=== PATIENT | female | born 1940 | race Caucasian/White ===

== ENCOUNTER 2023-08-17 17:45 | Inpatient (IN) | payer MEDICARE, BC, SELFPAY ==
[2023-08-17 14:27] VITALS: BP 146/70
[2023-08-17 14:33] VITALS: BMI 33.4
[2023-08-17] MEDS: DILAUDID 0.5 MG IV ×4 (15:08→23:39)
--- NOTE | 2023-08-17 16:00 | ED.MUSCINJ ---
HPI-Injury
General
Chief Complaint: Fall
Source: patient
Exam Limitations: none
Time Seen by Provider: 08/17/23 14:27
Nursing documentation reviewed up to this point in time: agreed with
Travel History
Have you had any contact with someone who has COVID-19?: No
Do you have any symptoms of coronavirus? Fever > 100 degrees, chills, cough, shortness of breath, sore throat, loss of taste or smell, muscle aches, or headache?: No
History of Present Illness-Injury
Is this injury a work related problem?: No
Is pt an associate of [facility]?: No
Initial Injury comments:
Patient states she lost her footing and fell. No LOC. COmplains of pain to left thigh. 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
Past History
Past History
ED Past Medical History: GERD, HTN, Hypercholesterolemia, Hypothyroidism, Psychiatric and Other (Dementia)
ED Past Surgical History: Orthopedic (left THR, TKR) and Other
Social History
Tobacco: Non-smoker
Alcohol: None
Drug: None
Personal:
Living: penitentiary
Review of Systems
Review of Systems
Allergies reviewed?: Yes
All Other Systems: ROS reviewed and negative except as documented in HPI and ROS
Constitutional: Reports no symptoms
EENT: Reports no symptoms
Respiratory: Reports no symptoms
Cardiac: Reports no symptoms
ABD/GI: Reports no symptoms
Musculoskeletal: Reports joint pain (Pain to left thigh)
Skin: Reports no symptoms
Neurological: Reports no symptoms
Psychiatric: Reports no symptoms
Musculoskeletal Injury Exam
Musculoskeletal Injury Exam
Left Thigh:
Pain with Movement?: Moderate
Tender to palpation?: Moderate
Soft tissue swelling?: None
External deformity and angulation?: None
Joint effusion?: None
Contusion?: Moderate
Hematoma-local bleeding into tissue?: None
Strain- Sprain- Tear (Connective tissue injury)?: Moderate
Crepitus with movement?: No
Joint instability?: No
Malalignment/deformity?: No
Range of motion: Limited
Distal skin color and temperature: normal-warm & good color
Capillary Refill: normal
Normal distal neurovascular exam?: No
Peripheral Pulses: posterior tibial (left): 3+ and dorsalis pedis (left): 3+
Phy Exam
General Physical Exam
General Presentation: moderate distress
General age: appears stated age
General Skin: warm and dry
General Habitus: normal
General Mental: alert
Cardiovascular Exam
Cardiovascular Exam: regular rate/rhythm and no edema
Pulmonary Exam
Pulmonary Exam: lungs clear and no respiratory distress
Neurological Exam
Neurological Exam: alert, oriented x3, CN II-XII intact and speech normal
Musculoskeletal Exam
Musculoskeletal Exam: neuro vasc intact
Skin Exam
Skin Exam: normal color, warm/dry and no rash
Psychiatric Exam
Psychiatric Exam: normal mood/affect
Injury Course
Orders/Labs/Results
Orders:
Orders
08/17/23 Lunch
Cholesterol Lowering
At Your Request: Limited Participation
Cholesterol Lowering: Sodium, 2 Gram
08/17/23 14:37
CR Femur - Left Min 2 Vw Urgent
Comment:
Reason For Exam: fall, pain
Hip, Left 2-3 Views [CR Hip - LT w/wo Pel 2-3 Vw*] Urgent
Comment:
Reason For Exam: fall, pain
Include a pelvis x-ray?: Yes
08/17/23 14:58
HYDROmorphone [Dilaudid] 0.5 mg IV NOW STA
08/17/23 16:35
Acetaminophen [Tylenol] 1,000 mg PO NOW STA
HYDROmorphone [Dilaudid] 0.5 mg IV Q3HPRN PRN
08/17/23 16:57
CT Head W/o Iv Contrast Urgent
Comment:
Reason For Exam: head injury
08/17/23 17:02
EKG [Electrocardiogram (*1)] Urgent
Reason for Study: Other
Other Reason for Exam: jackelyn-op risk assessment
08/17/23 17:12
Admit/Transfer Patient As Directed
Co-Sign Provider:
Level of Care: Inpatient admission
Assign to:: Medical/Surgical
Physician / Group: leanne joyce
Diagnosis: Left periprosthetic femur fracture
Reason for Hospitalization: Left periprosthetic femur fracture
Expected length of stay greater than two midnights?: Yes
ELOS- Estimated Length of Stay in days: 4
I certify the patient meets the requirements for IP care: Yes
08/17/23 17:16
Code Status As Directed
Resuscitation Status: Full Code
08/17/23 17:33
Type+Screen Urgent
Complete Blood Count/With Diff Urgent
Comprehensive Metabolic Panel Urgent
Prothrombin Time Urgent
08/17/23 17:37
Troponin I Stat
08/17/23 19:31
Mag Hydrox/Al Hydrox/Simeth [Maalox] 30 ml PO Q6HPRN PRN
Promethazine [Phenergan] 25 mg PO Q6HPRN PRN
Trimethobenzamide [Tigan] 200 mg IM Q6HPRN PRN
08/17/23 19:31
ORTHOPEDIC CONSULT Routine
Consulting Provider: Victorino Ortega
Was physician already notified: Yes
Reason for consult: left hip fracture
Activity As Directed
Activity Level: Ambulate
Vital Signs As Directed
Frequency: Per unit guidelines
DX Deep Vein Thrombosis Video Routine
08/17/23 20:00
Heparin 5,000 units SC Q12
Methenamine Hippurate [Hiprex] 1 gram PO BID
Polyethylene Glycol Powder [Miralax] 17 grams PO BID
08/17/23 22:00
Acetaminophen [Tylenol] 1,000 mg PO TID
Atorvastatin [Lipitor] 40 mg PO HS
Escitalopram Oxalate [Lexapro] 10 mg PO HS
Ezetimibe [Zetia] 10 mg PO HS
quetiapine 50 mg PO HS
08/18/23 06:00
Basic Metabolic Panel IN AM
Complete Blood Count/No Diff IN AM
08/18/23 07:30
Levothyroxine [Synthroid] 75 mcg PO DAILY@0730
08/18/23 08:00
Amlodipine [Norvasc] 2.5 mg PO DAILY
Fluconazole [Diflucan] 200 mg PO DAILY
Nebivolol HCl [Bystolic] 10 mg PO DAILY
Pantoprazole [Protonix] 40 mg PO DAILY
Quetiapine Fumarate [Seroquel] 25 mg PO BID@0800,1600
08/18/23 18:00
Estradiol Vaginal [Estrace 0.01% Vaginal Cream] DOSE applic VAG .3 TIMES A WEEK
08/20/23 Breakfast
NPO
Allow oral meds: Yes
Allow clear liquids: No
Abnormal Lab Results
08/17/23
17:33
WBC 18.4 H 10^3/uL
(4.8-10.8)
RBC 3.95 L 10^6/uL
(4.20-5.40)
Hct 32.8 L %
(37.0-47.0)
RDW 14.9 H %
(11.5-14.5)
MPV 10.6 H fL
(7.4-10.4)
Abs Immat Gran (auto) 0.1 H 10^3/uL
(0-0.05)
Absolute Neuts (auto) 15.4 H 10^3/uL
(1.4-6.5)
Absolute Monos (auto) 1.0 H 10^3/uL
(0.1-0.6)
Neutrophils % 83.6 H %
(42.2-75.2)
Lymphocytes % 10.0 L %
(20.5-51.1)
BUN 31 H mg/dl
(7-17)
Creatinine 1.1 H mg/dL
(0.6-1.0)
Glucose 129 H mg/dl
(70-99)
08/17/23 17:33
08/17/23 17:33
*Radiology
Radiology exam reviewed: preliminary read by ED provider (left displaced femur fx)
*Pulse Oximetry
Patient hypoxic: no
*Critical Care Note
Total Time (30-74mins, 75-104mins- exclusive of procedures): Not Applicable
Update Note
Update Note:
Patient to ED after trip and fall. Xray left femur - +displaced fracture. Dr. Ortega notified of results. Patient is admitted to hospitalist service with ortho consult. Surgery will most likely occur on as per Dr. Disla. Patient notified
of xray findings and admission. She is agreeable to plan.
ED Attending Note
-
Portions of this chart may have been created with voice recognition software.� Occasional wrong word or��sound alike� substitutions may have occurred due to the inherent limitations of voice recognition software.
Discharge Plan
Departure
Patient Disposition: Admit
Date of Disposition: 08/17/23
Time of Disposition: 16:03
Presentation/result/management discussed w/ accepting MD/DO: Hospitalist
Patient with high blood pressure during this ER visit?: No
Condition: Fair
Covid-19: Not Applicable
Discharge Problem:
Femur fracture, left
Interventions
Interventions:
*Risk Screen - Suicide Last Done: 08/17/23 14:27
*General Assessment Last Done: 08/17/23 19:27
*Neglect/Abuse Screening Last Done: 08/17/23 14:33
ED- Fall Risk Assessment Last Done: 08/17/23 14:35
*ED COVID-19 Vaccine History Last Done: 08/17/23 14:33
*Nursing Disposition Last Done: 08/17/23 19:27
ED-Musculoskeletal Assessment Last Done: 08/17/23 14:33
ED- Neurological Assessment Last Done: 08/17/23 14:33
ED-Skin Assessment Last Done: 08/17/23 14:33
Discharge Date and Time
Discharge Date/Time: 08/17/23 19:28
--- NOTE | 2023-08-17 16:07 | HPS.HSE ---
Family Physician
-
Family Physician: Shaquille Shea
Chief Complaint
-
Fall, left hip pain
History of Present Illness
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
chronic UTIs presents with left hip pain status post fall. Patient reports hitting her head, denies loss of consciousness. She reports falling while using her rolling walker in the dining room. No chest pain, no shortness of breath, no
palpitations. No lightheadedness, no dizziness. No black or bloody stools. No dysuria, no hematuria.
Medical History
Past Medical History
Past Medical History: Reports Other
Additional Past Medical History:
Paroxysmal atrial fibrillation
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
Dementia
Anxiety/depression
Gastroesophageal reflux disease
HTN
Hypothyroidism
Dyslipidemia
Depression
Constipation
UTIs
Past Surgical History: Reports Other
Additional Past Surgical History:
Bilateral shoulder replacement
Right shoulder revision
Left hip replacement
B/l knee replacement
Carpel tunnel surgery
Social History
Tobacco: Non-smoker
Alcohol: Occasional
Drug: None
Personal:
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
Family History
Family History: Not pertinent
Allergies / Home Medications
Allergies reflects when Allergies were last updated in [facility].
Home Medications with original date entered in [facility]
Allergy/Medication List:
Allergies
Allergy/AdvReac Type Severity Reaction Status Date / Time
cephalexin [From Keflex] Allergy Unknown Verified 07/02/23 17:13
morphine Allergy Unknown Verified 07/02/23 17:13
sulfacetamide Allergy Rash Verified 07/02/23 17:13
[From Sulfacet-R]
sulfur [From Sulfacet-R] Allergy Rash Verified 07/02/23 17:13
Home Medications Table - record
Medication Instructions Recorded Confirmed
nebivolol 10 mg tablet (Bystolic) 10 mg PO DAILY Blood pressure 02/02/22 08/17/23
atorvastatin 40 mg tablet 40 mg PO HS High cholesterol 02/03/22 08/17/23
donepezil 10 mg tablet 10 mg PO DAILY Neurological 02/03/22 08/17/23
Condition
levothyroxine 75 mcg tablet 75 mcg PO DAILY Thyroid 02/03/22 08/17/23
quetiapine 25 mg tablet (Seroquel) 25 mg PO BID@0800,1600 Mental 02/03/22 08/17/23
health
amlodipine 2.5 mg tablet 2.5 mg PO DAILY Blood pressure 10/15/22 08/17/23
fluconazole 200 mg tablet 200 mg PO DAILY Infection 10/15/22 08/17/23
methenamine hippurate 1 gram tablet 1 g PO BID Infection 10/15/22 08/17/23
omeprazole 40 mg capsule,delayed 40 mg PO DAILY Gastrointestinal 10/15/22 08/17/23
release issue
quetiapine 50 mg tablet 50 mg PO HS Mental health 10/15/22 08/17/23
escitalopram oxalate 10 mg tablet 10 mg PO HS 01/02/23 08/17/23
ascorbic acid (vitamin C) 1,000 mg 1,000 mg PO DAILY 07/02/23 08/17/23
tablet (Vitamin C)
cranberry 400 mg capsule 400 mg PO DAILY 07/02/23 08/17/23
estradiol 0.01% (0.1 mg/gram) 1 appful vaginal .3 TIMES A WEEK 07/02/23 08/17/23
vaginal cream
ezetimibe 10 mg tablet 10 mg PO HS 07/02/23 08/17/23
fluticasone propionate 50 1 spray intranasal DAILY PRN 07/02/23 08/17/23
mcg/actuation nasal congestion
spray,suspension
Review of Systems
-
A 12 point ROS was completed and negative except as noted: Yes
Physical Exam
Vital Signs
Vital Signs
Temp Pulse Resp BP Pulse Ox
97.5 F 62 18 146/70 95
08/17/23 14:27 08/17/23 14:27 08/17/23 14:27 08/17/23 14:27 08/17/23 14:27
Physical Exam
General: No Apparent Distress
HEENT: NormoCephalic, Anicteric and Moist mucous membranes
Respiratory: Clear
Cardiac: S1/S2 and Regular Rhythm
GI: Soft, Non Tender, Non Distended and Normal Bowel Sounds
Musculoskeletal: No Clubbing, No Cyanosis, No Edema and Other (Left leg shortened and externally rotated)
Skin: Warm and Dry
Neuro: Awake, Alert and Oriented
Impression/Plan
-
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
and chronic UTIs presents with left hip pain status post fall. Patient reports hitting her head, denies loss of consciousness. She reports falling while using her rolling walker in the dining room. No chest pain, no shortness of breath, no
palpitations. No lightheadedness, no dizziness. No black or bloody stools. No dysuria, no hematuria.
#Acute periprosthetic left femur fracture
Patient's surgical risk has been calculated, and found to be low
The benefits of the surgery will outweigh her risks. She may proceed for surgery
Dr. Ortega consulted, plan for OR on Friday
Pain control, bowel regimen, PT/OT after surgery
#Closed head injury
Patient reports hitting her head
Check head CT
#Left hand ecchymosis
Check left hand x-ray
#Leukocytosis
She is afebrile, no signs or symptoms of infection
Suspect reactive due to her fall
Will check urine analysis and chest x-ray for completeness sake
#Acute on chronic ambulatory dysfunction
Uses a walker at baseline
#Paroxysmal atrial fibrillation
No longer on anticoagulation due to recurrent falls
Continue Bystolic 10 mg daily for rate control
Patient scheduled for Watchman device in a few weeks
#Dementia
#Anxiety/depression
Continue Aricept, Namenda, escitalopram, Seroquel
Resides in [place] with housekeeper caregiver
#Benign essential hypertension
Continue amlodipine 2.5 mg daily
#Hyperlipidemia
Continue statin, Zetia
#Hypothyroidism
Continue levothyroxine
#Gastroesophageal reflux disease
Continue PPI
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
Continue fluconazole
#History of recurrent UTIs
Continue methenamine
DVT prophylaxis�subcu heparin (would hold day of surgery)
Full code confirmed with daughter Vidhi Bruno [phone]
Updated daughter on phone 08/16
Total time spent to see the patient on the floor, examine the patient, review data and lab results, discuss treatment plan with patient, nursing staff around 75 minutes.
--- NOTE | 2023-08-17 16:17 | PHANOTE ---
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 patient time study engineer caregiving will be in later today 08/17/23
[2023-08-17 16:30] VITALS: BP 139/59
[2023-08-17] MEDS: TYLENOL 1000 MG PO ×2 (17:08→21:49)
[2023-08-17 17:44] LABS: % Basophils 0.2 % (0-2); % Eosinophils 0.1 % (0-6); % Immature Granulocytes 0.4 % (0-0.5); % Monocytes 5.7 % (1.7-9.3); % Neutrophils 83.6 % (42.2-75.2); Absolute Immature Granulocytes 0.1 10^3/uL (0-0.05); Absolute Lymphocytes 1.8 10^3/uL (1.2-3.4); Absolute Neutrophils 15.4 10^3/uL (1.4-6.5); Hematocrit 32.8 % (37.0-47.0); Mean Corp Hgb Conc. 36.6 g/dL (33.0-37.0); Mean Corpuscular Hgb 30.4 pg (27.0-31.0); Mean Platelet Volume 10.6 fL (7.4-10.4); Nucleated Red Blood Cells % 0 %; Platelet Count 201 10^3/uL (130-400); Red Blood Cell Count 3.95 10^6/uL (4.20-5.40); Red Cell Dist. Width 14.9 % (11.5-14.5); White Blood Cell Count 18.4 10^3/uL (4.8-10.8)
[2023-08-17 17:54] LABS: INR 1.16; PT 14.6 Sec (11.4-14.6)
[2023-08-17 17:59] LABS: ALT (SGPT) 19 U/L (0-35); AST (SGOT) 26 U/L (14-36); Albumin 3.9 g/dl (3.5-5.0); Alkaline Phosphatase 91 U/L (38-126); Blood Urea Nitrogen 31 mg/dl (7-17); Calcium 9.5 mg/dl (8.4-10.2); Carbon Dioxide 24 mmol/L (22-30); Chloride 105 mmol/L (98-107); Estimated Creatinine Clearance 39 ml/min; Glucose 129 mg/dl (70-99); Potassium 4.5 mmol/L (3.5-5.1); Sodium 139 mmol/L (135-145); Total Bilirubin 0.4 mg/dl (0.2-1.3); Total Protein 6.4 g/dl (6.3-8.2); eGFR 50.17
[2023-08-17 18:06] LABS: Troponin I < 0.012 ng/ml
[2023-08-17 20:00] VITALS: BP 151/63
--- NOTE | 2023-08-17 20:00 | PTCARENOTE ---
Pt was received from ED at 1999. Pt was pulled over to the unit bed. Pt in a lot of pain, medicated with Dilaudid. Pt more comfortable after getting the pain med. Call spain in reach. Bed alarm in use.
[2023-08-17] MEDS: 0.45%NACL 1000 IV (20:16)
[2023-08-17] MEDS: HEPARIN 5000 UNITS SC (20:17)
[2023-08-17] MEDS: MIRALAX 17 GRAMS PO (20:17)
[2023-08-17 21:00] VITALS: BMI 32.4
--- NOTE | 2023-08-17 21:11 | CON.ORTHO ---
Consultation
-
Date/Time Consultation Requested: 08/17/2023 @ 19:31
Date/Time Consultation Performed: 08/17/2023 @ 20:30
Requesting Provider: Radha Sofia MD
Performing Provider: Howard Noble PA-C for Dr. Victorino Ortega
Reason for Consultation: Left Periprosthetic Femur Fracture
Consultation - Orthopedics
History
HPI: The patient is an 82-year-old female with a past medical history significant for paroxysmal atrial fibrillation (not on anticoagulation; scheduled to undergo Watchman procedure on 09/05), right shoulder prosthetic joint infection status post
revision on chronic fluconazole suppression, dementia, anxiety/depression, GERD, hypertension, hypothyroidism, dyslipidemia, and chronic UTIs who presented to [facility] Emergency Department this evening after sustaining a mechanical fall.
Majority of history was obtained by patient's POA (Vidhi Bruno; [phone]) and her molding machine operator helper (Armida Kearney; [phone]). Patient is a resident at [facility] and lives with Armida, who helps her with ADLs. Patient is reportedly not independent
at baseline. Patient was in the dining room at [facility] this evening when she turned to put her plate on the table, and subsequently sustained a mechanical fall landing on her left side/thigh region. Patient was unable to get up after the
injury occurred and was brought to ED for further evaluation. Plain radiographs of the left femur were obtained, revealing a oblique periprosthetic fracture of the mid to distal left femur. Currently, she is resting in bed and does endorse pain
to the left thigh. She also endorses some discomfort to the left hand, specifically the left thumb. She denies any pain elsewhere. It is reported that the patient did hit her head, however did not lose consciousness. Patient ambulates with a
walker due to balance problems secondary to bilateral foot deformity. Orthopedic surgery was consulted regarding surgical fixation of her left periprosthetic femur fracture.
PAST MEDICAL HISTORY: Paroxysmal atrial fibrillation, right shoulder prosthetic joint infection status post 1 stage revision (2015) on chronic fluconazole suppression, dementia, anxiety/depression, GERD, hypertension, hypothyroidism, dyslipidemia,
depression, constipation, chronic UTIs.
PAST SURGICAL HISTORY: Bilateral shoulder replacement (Dr. Aki Olivas; [facility]), right shoulder revision (Dr. Aki Olivas; [facility]), left hip short gamma nail (Tegandyan; 2020), bilateral knee replacement (Dr. Prabhakar
Brendon; [facility]), carpal tunnel surgery.
SOCIAL HISTORY: Denies tobacco use or recreational drug use. Occasional alcohol use. Lives at [facility], has molding machine operator helper (Armida Kearney). Ambulates at baseline with a walker.
FAMILY HISTORY: Non-contributory.
REVIEW OF SYSTEMS: 12-point review of systems obtained and negative except those mentioned in the HPI.
Allergies / Home Medications
Allergy/AdvReac Type Severity Reaction Status Date / Time
cephalexin [From Keflex] Allergy Unknown Verified 07/02/23 17:13
morphine Allergy Unknown Verified 07/02/23 17:13
sulfacetamide Allergy Rash Verified 07/02/23 17:13
[From Sulfacet-R]
sulfur [From Sulfacet-R] Allergy Rash Verified 07/02/23 17:13
Medication Instructions Recorded
nebivolol 10 mg tablet (Bystolic) 10 mg PO DAILY Blood pressure 02/02/22
atorvastatin 40 mg tablet 40 mg PO HS High cholesterol 02/03/22
donepezil 10 mg tablet 10 mg PO DAILY Neurological 02/03/22
Condition
levothyroxine 75 mcg tablet 75 mcg PO DAILY Thyroid 02/03/22
quetiapine 25 mg tablet (Seroquel) 25 mg PO BID@0800,1600 Mental 02/03/22
health
amlodipine 2.5 mg tablet 2.5 mg PO DAILY Blood pressure 10/15/22
fluconazole 200 mg tablet 200 mg PO DAILY Infection 10/15/22
methenamine hippurate 1 gram tablet 1 g PO BID Infection 10/15/22
omeprazole 40 mg capsule,delayed 40 mg PO DAILY Gastrointestinal 10/15/22
release issue
quetiapine 50 mg tablet 50 mg PO HS Mental health 10/15/22
escitalopram oxalate 10 mg tablet 10 mg PO HS 01/02/23
ascorbic acid (vitamin C) 1,000 mg 1,000 mg PO DAILY 07/02/23
tablet (Vitamin C)
cranberry 400 mg capsule 400 mg PO DAILY 07/02/23
estradiol 0.01% (0.1 mg/gram) 1 appful vaginal .3 TIMES A WEEK 07/02/23
vaginal cream
ezetimibe 10 mg tablet 10 mg PO HS 07/02/23
fluticasone propionate 50 1 spray intranasal DAILY PRN 07/02/23
mcg/actuation nasal congestion
spray,suspension
Vital Signs / Lab Results
Temp Pulse Resp BP Pulse Ox
97.6 F 66 18 151/63 99
08/17/23 20:00 08/17/23 20:00 08/17/23 20:00 08/17/23 20:00 08/17/23 20:00
08/17/23 17:33
08/17/23 17:33
RADIOGRAPHIC FINDINGS:
CR Femur - Left Min 2 View was obtained at [facility] on 08/17/2023 and was made available for my review today. Findings: The patient is status post gamma nail fixation of the left proximal femur including a locking screw of the
intramedullary beny which extends into the proximal femoral shaft. Just inferior to the distal locking screw, the superior margin of the oblique fracture of the mid to distal left femur is noted. There is mild medial displacement of the distal
fracture fragment with slightly less than one half shaft width posterior displacement of the distal fracture fragment. No significant angulation is identified. Fracture line appears to extend to the superior and lateral margin of the femoral
component of the left knee prosthesis. No evidence for fracture of the visualized pelvic bones. Impression: Oblique fracture involving the left femur as described.
PHYSICAL EXAM:
General: Well-developed, well-nourished female, in no acute distress.
HEENT: NCAT, sclera anicteric, normal conversational hearing.
Heart: No JVD.
Lungs: Normal work of breathing on room air.
MSK: Focused examination of the left lower extremity reveals a well-healed vertical incision overlying the left knee. Left lower extremity is shortened and externally rotated. Logrolling maneuver reproduces pain to the left thigh. Positive
tenderness to palpation over the left mid to distal thigh. Range of motion deferred secondary to known fracture. Able to plantarflex and dorsiflex left ankle; chronic deformity of left ankle noted. Patient is able to wiggle all toes. Sensation
is intact to light touch. Calf is soft and nontender to palpation. Patient is neurovascularly intact distally. Physical examination of the left upper extremity, with attention to the left hand reveals ecchymosis overlying the volar aspect of the
left thumb. There is mild tenderness to palpation over the left distal phalanx and proximal phalanx. Less tenderness to palpation over the first metacarpal. There is no significant pain reproduced with passive range of motion of the first CMC
joint.
Assessment / Plan
ASSESSMENT: 82-year-old female with a left periprosthetic femur fracture.
PLAN: Unfortunately, the patient has sustained a left mid to distal periprosthetic femur fracture following mechanical fall this evening. Treatment options were discussed with the patient's POA (Vidhi) and her molding machine operator helper (Armida). After thorough
discussion, shared decision was to proceed with operative fixation. The risks, benefits, potential complications, and expected postoperative course were reviewed. Surgical and blood consents were obtained and placed in the patient's chart (consent
obtained via telephone). We will plan for OR on 08/20/2023, for surgical repair of left femur fracture under the direction of Dr. Ortega. Patient has been medically cleared to proceed with surgery. Patient to remain NPO pMN 08/19/2023.
She is to remain nonweightbearing to the left leg until postop. I spoke to the patient's nurse, who will be obtaining a knee immobilizer to the left lower extremity. Continue with pain management per primary team as needed. Patient has unknown
allergy to Cephalexin. I spoke to the pharmacy, and we will proceed with preoperative Vancomycin. TXA irrigation and iodine irrigation on-call to the OR. Type and screen completed. Case posted with the nursing load out supervisor. CT scan of the left
lower extremity ordered for preoperative planning. X-ray of the left hand also ordered to rule out occult fracture. Orthopedic surgery will continue to follow along.
[2023-08-17] MEDS: LEXAPRO 10 MG PO (21:49)
[2023-08-17] MEDS: HIPREX 1 GRAM PO (21:49)
[2023-08-17] MEDS: LIPITOR 40 MG PO (21:49)
[2023-08-17] MEDS: SEROQUEL 50 MG PO (21:49)
[2023-08-17] MEDS: ZETIA 10 MG PO (21:50)
[2023-08-17 23:31] VITALS: BP 122/55
[2023-08-18 00:52] LABS: Urine Albumin Negative (Neg - Trace); Urine Bilirubin Negative (Negative); Urine Character Clear (Clear); Urine Color Yellow; Urine Glucose Negative (Negative); Urine Ketone Trace (Negative); Urine Leukocyte Negative (Negative); Urine Nitrite Negative (Negative); Urine Occult Blood Negative (Negative); Urine Urobilinogen Negative (Neg - 1+)
[2023-08-18] MEDS: SYNTHROID 75 MCG PO (05:37)
--- NOTE | 2023-08-18 07:10 | W.PN.UPDATE ---
Update Note
Progress Note Update
Patient seen on AM rounds this morning. She is resting comfortably in bed asleep, therefore not disturbed. Plan for operative fixation of her left periprosthetic femur fracture 08/20/2023 under the direction of Dr. Ortega. Patient to
remain NWB to LLE. Knee immobilizer to remain intact. CT scan of the left lower extremity completed for preoperative planning:
CT scan of the left lower extremity without contrast was performed at [facility] on 08/17/2023 was made available for my review today. Findings: There is a beny in the proximal medullary cavity of the left femur as well as a surgical screw
through the left femoral neck and a surgical screw through the proximal shaft. There is a comminuted fracture of the lower half of the shaft of the left femur with approximate 1.4 cm override, one half bone shaft with medially and posterior
displacement of the largest distal fracture fragment. There is minimal convex posterior angulation. Fracture lines extend to just above the superior aspect of the femoral component of the left knee replacement. Impression: Comminuted displaced
and minimally angulated fracture of the distal half of the left femur as described above. Proximal and distal left femur hardware as described above.
Order placed for x-ray of the left hand to rule out occult fracture. This is currently pending and plan to be performed this morning.
Orthopedic surgery will continue to follow along.
[2023-08-18] MEDS: MIRALAX 17 GRAMS PO ×2 (07:54→21:20)
[2023-08-18] MEDS: NORVASC 2.5 MG PO (07:54)
[2023-08-18] MEDS: DIFLUCAN 200 MG PO (07:54)
[2023-08-18] MEDS: BYSTOLIC 10 MG PO (07:54)
[2023-08-18] MEDS: TYLENOL 1000 MG PO ×3 (07:54→21:21)
[2023-08-18] MEDS: HIPREX 1 GRAM PO ×2 (07:54→21:20)
[2023-08-18] MEDS: SEROQUEL 25 MG PO ×2 (07:55→15:13)
[2023-08-18] MEDS: HEPARIN 5000 UNITS SC ×2 (07:55→21:21)
[2023-08-18] MEDS: ESTRACE 0.01% VAGINAL CREAM 1 APPLIC VAG (07:55)
[2023-08-18] MEDS: PROTONIX 40 MG PO (07:55)
[2023-08-18 08:15] VITALS: BP 99/39
[2023-08-18 09:26] LABS: Hematocrit 27.7 % (37.0-47.0); Hemoglobin 9.9 g/dL (12.0-16.0); Mean Corp Hgb Conc. 35.7 g/dL (33.0-37.0); Mean Corpuscular Hgb 30.7 pg (27.0-31.0); Platelet Count 178 10^3/uL (130-400); Red Blood Cell Count 3.22 10^6/uL (4.20-5.40); Red Cell Dist. Width 15.3 % (11.5-14.5); White Blood Cell Count 11.1 10^3/uL (4.8-10.8)
[2023-08-18 09:38] VITALS: BP 100/60
[2023-08-18 09:49] LABS: Blood Urea Nitrogen 38 mg/dl (7-17); Calcium 8.3 mg/dl (8.4-10.2); Carbon Dioxide 24 mmol/L (22-30); Chloride 105 mmol/L (98-107); Estimated Creatinine Clearance 30 ml/min; Glucose 102 mg/dl (70-99); Potassium 4.5 mmol/L (3.5-5.1); Sodium 134 mmol/L (135-145); eGFR 37.56
[2023-08-18 11:30] VITALS: BP 118/42
[2023-08-18] MEDS: DILAUDID 0.5 MG IV ×2 (12:58→21:58)
[2023-08-18] MEDS: NSS 1000 IV ×2 (13:41→21:58)
[2023-08-18 15:00] VITALS: BP 103/35
--- NOTE | 2023-08-18 16:58 | W.PN.HOSP.TC ---
Today's Communication/Plan
-
ortho planning OR friday
continue other care
Assessment / Plan
Assessment / Plan
#Acute periprosthetic left femur fracture
Patient's surgical risk has been calculated, and found to be low
The benefits of the surgery will outweigh her risks. She may proceed for surgery
Dr. Ortega consulted, plan for OR on Friday
Pain control, bowel regimen, PT/OT after surgery
#Closed head injury
Patient reports hitting her head
Head CT neg.
#Left hand ecchymosis
Left wrist xr without acute changes.
#Leukocytosis
She is afebrile, no signs or symptoms of infection
Suspect reactive due to her fall
Will check urine analysis and chest x-ray for completeness sake
#Acute on chronic ambulatory dysfunction
Uses a walker at baseline
#PHONG
worsening renal function. cr 1.4 today
avoid nephrotoxic medication
bladder scan ordered
#Paroxysmal atrial fibrillation
No longer on anticoagulation due to recurrent falls
Continue Bystolic 10 mg daily for rate control
Patient scheduled for Watchman device in a few weeks
#Dementia
#Anxiety/depression
Continue Aricept, Namenda, escitalopram, Seroquel
Resides in [place] with interpersonal communications professor
#Benign essential hypertension
Continue amlodipine 2.5 mg daily
#Hyperlipidemia
Continue statin, Zetia
#Hypothyroidism
Continue levothyroxine
#Gastroesophageal reflux disease
Continue PPI
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
Continue fluconazole
#History of recurrent UTIs
Continue methenamine
DVT prophylaxis�subcu heparin (would hold day of surgery)
Full code confirmed with daughter Vidhi Bruno [phone]
Anticipated Discharge: 24 - 48 hours
Subjective/Interval History
-
Date of Service: August 18, 2023
Some left lower extremity pain
no left wrist pain
no reported other issues
Objective Data
-
Labs:
Laboratory Results
08/18/23
08:49
WBC 11.1 H
Hgb 9.9 L
Hct 27.7 L
Plt Count 178
Sodium 134 L
Potassium 4.5
Chloride 105
Carbon Dioxide 24
BUN 38 H
Creatinine 1.4 H
Glucose 102 H
Calcium 8.3 L
Vital Signs:
Vital Signs
Temp Pulse Resp BP Pulse Ox
98.2 F 61 18 103/35 96
08/18/23 15:00 08/18/23 15:00 08/18/23 15:00 08/18/23 15:00 08/18/23 15:00
I&O
08/17/23 08/18/23 08/19/23
06:59 06:59 06:59
Intake Total 1065 / 1065
Balance 1065 / 1065
Review of Systems
-
Respiratory: Reports No Symptoms
Cardiac: Reports No Symptoms
Abdomen/GI: Reports No Symptoms
Physical Exam
-
General: Obese; Negative Respiratory Distress or Appears in Distress
HEENT: Negative Oxygen
Respiratory: Clear to Auscultation
Cardiac: Regular Rhythm and S1/S2; Negative Murmur
GI: Soft, Nontender and Nondistended
Musculoskeletal: Edema, Left Lower Extrem and Other (Left leg immobilizer in place)
Neuro: Awake, Alert and No Motor Deficits
Psych: Calm
[2023-08-18] MEDS: LIPITOR 40 MG PO (21:21)
[2023-08-18] MEDS: LEXAPRO 10 MG PO (21:21)
[2023-08-18] MEDS: ZETIA 10 MG PO (21:21)
[2023-08-18] MEDS: SEROQUEL 50 MG PO (21:21)
[2023-08-18 23:25] VITALS: BP 117/51
[2023-08-19] MEDS: SYNTHROID 75 MCG PO (05:43)
[2023-08-19] MEDS: DILAUDID 0.5 MG IV ×3 (05:44→15:41)
--- NOTE | 2023-08-19 07:06 | W.PN.UPDATE ---
Update Note
Progress Note Update
Patient seen on AM rounds this morning. She is resting comfortably in bed. She does endorse discomfort to the left distal femur region. She reports that her thumb pain has improved despite edema and ecchymosis. X-ray reported as no acute
fractures. I disagree with this report. There is a radiolucent line about the distal aspect of the first proximal phalanx with tenderness to palpation over this region. Recommend stack splint. [facility]
Plan for operative fixation of her left periprosthetic femur fracture 08/20/2023 under the direction of Dr. Ortega. Patient to remain NWB to LLE. Knee immobilizer to remain intact. Preoperative antibiotics, iodine irrigation, and TXA
irrigation on-call to the OR. Type and screen completed. Consent form was obtained and placed in patient's chart. Hgb this AM 8.7. Please hold SubQ Heparin day of surgery. Orthopedic surgery will continue to follow along.
[2023-08-19 07:54] LABS: Hematocrit 25.1 % (37.0-47.0); Hemoglobin 8.7 g/dL (12.0-16.0); Mean Corp Hgb Conc. 34.7 g/dL (33.0-37.0); Mean Corpuscular Hgb 29.8 pg (27.0-31.0); Mean Platelet Volume 11.4 fL (7.4-10.4); Platelet Count 152 10^3/uL (130-400); Red Blood Cell Count 2.92 10^6/uL (4.20-5.40); Red Cell Dist. Width 14.8 % (11.5-14.5); White Blood Cell Count 8.8 10^3/uL (4.8-10.8)
[2023-08-19] MEDS: NSS 1000 IV (07:59)
[2023-08-19] MEDS: BYSTOLIC 10 MG PO (08:03)
[2023-08-19] MEDS: TYLENOL 1000 MG PO ×3 (08:03→21:15)
[2023-08-19] MEDS: NORVASC 2.5 MG PO (08:03)
[2023-08-19] MEDS: DIFLUCAN 200 MG PO (08:03)
[2023-08-19] MEDS: HIPREX 1 GRAM PO ×2 (08:03→19:37)
[2023-08-19] MEDS: MIRALAX 17 GRAMS PO ×2 (08:03→19:36)
[2023-08-19] MEDS: SEROQUEL 25 MG PO ×2 (08:03→15:27)
[2023-08-19] MEDS: HEPARIN 5000 UNITS SC ×2 (08:03→19:36)
[2023-08-19] MEDS: PROTONIX 40 MG PO (08:03)
[2023-08-19 08:06] VITALS: BP 133/42
[2023-08-19 08:22] LABS: Blood Urea Nitrogen 32 mg/dl (7-17); Calcium 8.1 mg/dl (8.4-10.2); Carbon Dioxide 23 mmol/L (22-30); Chloride 106 mmol/L (98-107); Estimated Creatinine Clearance 43 ml/min; Glucose 103 mg/dl (70-99); Potassium 3.9 mmol/L (3.5-5.1); Sodium 136 mmol/L (135-145); eGFR 56.25
--- NOTE | 2023-08-19 09:12 | PN.CDI ---
CDI
- -
CDI:
Physician Documentation Request
Admit Date: 08/17/23 17:45
Dear Doctor Mark,
Patient admitted for left femur fracture.
08/16 Orthopedic consult: 'PAST SURGICAL HISTORY: Bilateral shoulder replacement (Dr. Aki Olivas; [facility]), right shoulder revision (Dr. Aki Olivas; [facility]), left hip short gamma nail ([place]; 2020), bilateral knee
replacement (Dr. Aki Olivas; [facility])'
08/16 Hospitalist PN: 'Acute on chronic ambulatory dysfunction. Uses a walker at baseline'
Please provide further specificity regarding the diagnosis of fracture:
Due to a combination of trauma and a pathological process but the trauma alone would not likely have been sufficient to cause the fracture
Traumatic fracture
Other
Use of terms such as suspected, likely, concern for, or probable (associated with a specific diagnosis that is being evaluated, monitored, or treated as if it exists) are acceptable and can be coded in the inpatient setting, when documented at the
time of discharge.
Thank you,
Carol Marsh RN, BSN
CDI Specialist
Available via [place] text
Please use your independent medical judgment in providing your response.
--- NOTE | 2023-08-19 13:55 | W.PN.HOSP.TC ---
Today's Communication/Plan
-
for OR tomorrow
monitor renal function
continue other care
Assessment / Plan
Assessment / Plan
#Acute periprosthetic left femur fracture
Patient's surgical risk has been calculated, and found to be low
The benefits of the surgery will outweigh her risks. She may proceed for surgery
Dr. Ortega consulted, plan for OR on Friday
Pain control, bowel regimen, PT/OT after surgery
#Closed head injury
Patient reports hitting her head
Head CT neg.
#Left hand ecchymosis
Left wrist xr without acute changes.
#Leukocytosis
She is afebrile, no signs or symptoms of infection
Suspect reactive due to her fall
Will check urine analysis and chest x-ray for completeness sake
#Acute on chronic ambulatory dysfunction
Uses a walker at baseline
#PHONG - resolved
Cr normalized to 1.
avoid nephrotoxic medication
bladder scan ordered
#Paroxysmal atrial fibrillation
No longer on anticoagulation due to recurrent falls
Continue Bystolic 10 mg daily for rate control
Patient scheduled for Watchman device in a few weeks
#Dementia
#Anxiety/depression
Continue Aricept, Namenda, escitalopram, Seroquel
Resides in [place] with personal attendant
#Benign essential hypertension
Continue amlodipine 2.5 mg daily
#Hyperlipidemia
Continue statin, Zetia
#Hypothyroidism
Continue levothyroxine
#Gastroesophageal reflux disease
Continue PPI
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
Continue fluconazole
#History of recurrent UTIs
Continue methenamine
DVT prophylaxis�subcu heparin (would hold day of surgery)
Full code confirmed with daughter Vidhi Bruno [phone]
Anticipated Discharge: 24 - 48 hours
Subjective/Interval History
-
Date of Service: August 19, 2023
some LLE pain
no other acute problems reported
Objective Data
-
Labs:
Laboratory Results
08/19/23
07:22
WBC 8.8
Hgb 8.7 L
Hct 25.1 L
Plt Count 152
Sodium 136
Potassium 3.9
Chloride 106
Carbon Dioxide 23
BUN 32 H
Creatinine 1.0
Glucose 103 H
Calcium 8.1 L
Vital Signs:
Vital Signs
Temp Pulse Resp BP Pulse Ox
97.6 F 62 16 133/42 100
08/19/23 08:06 08/19/23 08:06 08/19/23 08:06 08/19/23 08:06 08/19/23 08:06
I&O
08/18/23 08/19/23 08/20/23
06:59 06:59 06:59
Intake Total 1065 / 1065 840 / 840
Output Total 1000 / 1000
Balance 1065 / 1065 -160 / -160
Review of Systems
-
Respiratory: Reports No Symptoms
Cardiac: Reports No Symptoms
Abdomen/GI: Reports No Symptoms
Physical Exam
-
General: Obese; Negative Respiratory Distress or Appears in Distress
HEENT: Negative Oxygen
Respiratory: Clear to Auscultation
Cardiac: Regular Rhythm and S1/S2; Negative Murmur
GI: Soft, Nontender and Nondistended
Musculoskeletal: Edema, Left Lower Extrem and Other (Left leg immobilizer in place)
Neuro: Awake, Alert and No Motor Deficits
Psych: Calm
[2023-08-19 15:06] VITALS: BP 83/50
--- NOTE | 2023-08-19 17:21 | CM ---
CM following re: d/c planning
Chart reviewed
CM met with the patient's live-in caregiver who assisted with IA
Pt resides at [facility] on the 3rd floor with elevator access
Pt is assisted with adls & mobility
Pt has no SNF hx, has a r/w for use with mobility (pt is a fall risk), and patient is current with [facility]
Pt has prescription coverage and rx's are filled at [facility]
Pt PCP-Shaquille Shea
Per nursing patient is an assist x2
Per the patient's live-in caregiver; SNF is not an option and the patient adamantly refuses to go to SNF
CM will continue to follow patient progress and assist with any needs as indicated
PLAN; CM following for d/c needs
[2023-08-19] MEDS: NSS IV (21:11)
[2023-08-19] MEDS: LIPITOR 40 MG PO (21:14)
[2023-08-19] MEDS: ZETIA 10 MG PO (21:15)
[2023-08-19] MEDS: LEXAPRO 10 MG PO (21:15)
[2023-08-19] MEDS: SEROQUEL 50 MG PO (21:15)
[2023-08-19 23:11] VITALS: BP 124/56
[2023-08-20] VITALS (25 sets, daily range): BP systolic 92–141; BP diastolic 44–102
[2023-08-20] MEDS: SYNTHROID 75 MCG PO (05:35)
[2023-08-20] MEDS: HIPREX 1 GRAM PO ×2 (08:12→19:24)
[2023-08-20] MEDS: TYLENOL 1000 MG PO ×2 (08:12→21:57)
[2023-08-20] MEDS: SEROQUEL 25 MG PO (08:12)
[2023-08-20] MEDS: DIFLUCAN 200 MG PO (08:13)
[2023-08-20] MEDS: NORVASC 2.5 MG PO (08:13)
[2023-08-20] MEDS: BYSTOLIC 10 MG PO (08:14)
[2023-08-20] MEDS: PROTONIX 40 MG PO (08:14)
[2023-08-20] MEDS: MIRALAX PO (08:14)
[2023-08-20 08:15] LABS: Hematocrit 27.2 % (37.0-47.0); Hemoglobin 9.7 g/dL (12.0-16.0); Mean Corp Hgb Conc. 35.7 g/dL (33.0-37.0); Mean Corpuscular Hgb 30.1 pg (27.0-31.0); Mean Corpuscular Volume 84.5 fL (81.0-99.0); Mean Platelet Volume 11.1 fL (7.4-10.4); Platelet Count 146 10^3/uL (130-400); Red Blood Cell Count 3.22 10^6/uL (4.20-5.40); Red Cell Dist. Width 14.8 % (11.5-14.5); White Blood Cell Count 10.2 10^3/uL (4.8-10.8)
[2023-08-20] MEDS: ESTRACE 0.01% VAGINAL CREAM VAG (08:15)
[2023-08-20] MEDS: HEPARIN SC (08:15)
--- NOTE | 2023-08-20 08:29 | W.PN.UPDATE ---
Update Note
Progress Note Update
Ms. Benavides is resting comfortably in bed this morning. She reports her pain is well controlled at present. Her knee immobilizer was adjusted this morning. Expected edema about the left knee. Thigh soft and compressible. Tenderness to palpation
generally about the distal femur and left knee. Calf soft and nontender. Patient able to wiggle toes, plantar and dorsiflex ankle. Neurovascularly intact distally.
--Plan is to proceed with OR today under the direction of Dr. Ortega.
--NWB to LLE until surgery. Knee immobilizer at all times. Please ensure immobilizer is fitted properly; the pillow should be sitting in the popliteal fossa.
--NPO until surgery.
--Labs pending this AM.
--Continue with current pain management regimen. Ice and elevation for edema control.
--Orthopedics will continue to follow along.
[2023-08-20 08:49] LABS: Blood Urea Nitrogen 24 mg/dl (7-17); Calcium 8.9 mg/dl (8.4-10.2); Carbon Dioxide 21 mmol/L (22-30); Chloride 109 mmol/L (98-107); Estimated Creatinine Clearance 53 ml/min; Glucose 87 mg/dl (70-99); Potassium 4.2 mmol/L (3.5-5.1); Sodium 139 mmol/L (135-145); eGFR > 60.00
[2023-08-20 11:06] LABS: Urine Albumin Negative (Neg - Trace); Urine Bilirubin Negative (Negative); Urine Character Clear (Clear); Urine Color Yellow; Urine Glucose Negative (Negative); Urine Ketone Negative (Negative); Urine Leukocyte Negative (Negative); Urine Nitrite Negative (Negative); Urine Occult Blood Negative (Negative); Urine Specific Gravity 1.015 (<1.030); Urine Urobilinogen Negative (Neg - 1+)
--- NOTE | 2023-08-20 12:30 | W.PN.HOSP.TC ---
Addendum entered and electronically signed by Jem Flores MD 08/21/23 07:30:
Fracture likely traumatic in nature
Original Note:
Today's Communication/Plan
-
for OR today
UA clear
Assessment / Plan
Assessment / Plan
#Acute periprosthetic left femur fracture
Patient's surgical risk has been calculated, and found to be low
The benefits of the surgery will outweigh her risks. She may proceed for surgery
Dr. Ortega consulted, patient going for OR today
Pain control, bowel regimen, PT/OT after surgery
#Closed head injury
Patient reports hitting her head
Head CT neg.
#Left hand ecchymosis
Left wrist xr without acute changes.
#mild TME
avoid sedative medication
UA clean
continue monitor
#Leukocytosis -resolved
She is afebrile, no signs or symptoms of infection
#Acute on chronic ambulatory dysfunction
Uses a walker at baseline
#PHONG - resolved
Cr normalized to 1.
avoid nephrotoxic medication
bladder scan ordered
#Paroxysmal atrial fibrillation
No longer on anticoagulation due to recurrent falls
Continue Bystolic 10 mg daily for rate control
Patient scheduled for Watchman device in a few weeks
#Dementia
#Anxiety/depression
Continue Aricept, Namenda, escitalopram, Seroquel
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
#Benign essential hypertension
Continue amlodipine 2.5 mg daily
#Hyperlipidemia
Continue statin, Zetia
#Hypothyroidism
Continue levothyroxine
#Gastroesophageal reflux disease
Continue PPI
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
Continue fluconazole
#History of recurrent UTIs
Continue methenamine
DVT prophylaxis�subcu heparin (would hold day of surgery)
Full code confirmed with daughter Vidhi Bruno [phone]
Anticipated Discharge: 24 - 48 hours
Subjective/Interval History
-
Date of Service: August 20, 2023
No issues overnight
patient minimally sedated today
Objective Data
-
Labs:
Laboratory Results
08/20/23
07:58
WBC 10.2
Hgb 9.7 L
Hct 27.2 L
Plt Count 146
Sodium 139
Potassium 4.2
Chloride 109 H
Carbon Dioxide 21 L
BUN 24 H
Creatinine 0.8
Glucose 87
Calcium 8.9
Vital Signs:
Vital Signs
Temp Pulse Resp BP Pulse Ox
97.9 F 65 12 141/102 100
08/20/23 07:06 08/20/23 07:06 08/20/23 07:06 08/20/23 07:06 08/20/23 07:06
I&O
08/19/23 08/20/23 08/21/23
06:59 06:59 06:59
Intake Total 840 / 840 2480 / 2480
Output Total 1000 / 1000 1200 / 1200
Balance -160 / -160 1280 / 1280
Review of Systems
-
Unable to obtain full review of systems at this time due to: Acuity
Physical Exam
-
General: Obese; Negative Respiratory Distress or Appears in Distress
HEENT: Negative Oxygen
Respiratory: Clear to Auscultation
Cardiac: Regular Rhythm and S1/S2; Negative Murmur
Musculoskeletal: Edema, Left Lower Extrem and Other (Left leg immobilizer in place)
Neuro: No Motor Deficits and Sedated
Psych: Calm
--- NOTE | 2023-08-20 15:10 | CM ---
Chart reviewed, patient not in room at this time. CM reviewed consult for discharge planning, will follow along with PT/OT evaluations to see recommendations for patient. Per Hospitalist note, patient for OR today. CM will continue to follow for
discharge planning needs.
Plan; return to [facility] [place] with home health, pending PT/OT evaluations.
[2023-08-20] MEDS: DILAUDID 0.25 MG IV (16:56)
[2023-08-20] MEDS: NSS 1000 IV (17:25)
[2023-08-20 17:31] LABS: Hemoglobin 10.3 g/dL (12.0-16.0)
[2023-08-20] MEDS: SEROQUEL PO (18:42)
[2023-08-20] MEDS: TYLENOL PO (18:42)
[2023-08-20] MEDS: ASPIRIN 325 MG PO (19:24)
[2023-08-20] MEDS: HEPARIN 5000 UNITS SC (19:24)
[2023-08-20] MEDS: MIRALAX 17 GRAMS PO (19:25)
[2023-08-20] MEDS: ANCEF 5 IV (21:55)
[2023-08-20] MEDS: LEXAPRO 10 MG PO (21:56)
[2023-08-20] MEDS: SEROQUEL 50 MG PO (21:56)
[2023-08-20] MEDS: LIPITOR 40 MG PO (21:56)
[2023-08-20] MEDS: ZETIA 10 MG PO (21:57)
[2023-08-20] MEDS: DILAUDID 0.5 MG IV (22:02)
[2023-08-21] MEDS: NSS 1000 IV ×3 (02:25→21:35)
[2023-08-21 03:46] VITALS: BP 115/56
[2023-08-21] MEDS: ANCEF 5 IV (05:08)
[2023-08-21] MEDS: SYNTHROID 75 MCG PO (05:31)
[2023-08-21 07:00] VITALS: BP 109/54
--- NOTE | 2023-08-21 07:12 | W.PN.ORTHO ---
Today's Communication / Plan
-
PT/OT
Strict nonweightbearing left lower extremity
Observe hemoglobin
Aspirin for DVT prophylaxis
Encourage knee range of motion
prison facility once medically stable
Assessment
.
Distal Motor Intact: Yes
Dressing:
Clean, dry and intact.
Plan
.
Surgery / Date: ORIF L periprosthetic femur fracture 08/19 [facility]
DVT Prophylaxis: Aspirin
Activity:
Out of bed.
PT/OT
Strict nonweightbearing
Knee range of motion
Discharge Plan: SNF
Subjective
.
.:
Patient resting comfortably.
Vital Signs and Labs
.
Vital Signs and Labs:
Temp Pulse Resp BP Pulse Ox
98.4 F 68 18 115/56 97
08/21/23 03:46 08/21/23 03:46 08/21/23 03:46 08/21/23 03:46 08/21/23 03:46
PT 14.6 Sec (11.4-14.6) 08/17/23 17:33
INR 1.16 08/17/23 17:33
[2023-08-21 07:57] LABS: Hematocrit 24.5 % (37.0-47.0); Hemoglobin 8.5 g/dL (12.0-16.0); Mean Corp Hgb Conc. 34.7 g/dL (33.0-37.0); Mean Corpuscular Hgb 29.8 pg (27.0-31.0); Mean Platelet Volume 11.4 fL (7.4-10.4); Platelet Count 159 10^3/uL (130-400); Red Blood Cell Count 2.85 10^6/uL (4.20-5.40); Red Cell Dist. Width 15.4 % (11.5-14.5); White Blood Cell Count 16.4 10^3/uL (4.8-10.8)
[2023-08-21 08:35] LABS: Blood Urea Nitrogen 28 mg/dl (7-17); Calcium 7.7 mg/dl (8.4-10.2); Carbon Dioxide 20 mmol/L (22-30); Chloride 111 mmol/L (98-107); Estimated Creatinine Clearance 35 ml/min; Glucose 141 mg/dl (70-99); Potassium 4.6 mmol/L (3.5-5.1); Sodium 136 mmol/L (135-145); eGFR 45.19
[2023-08-21] MEDS: MIRALAX 17 GRAMS PO ×2 (08:54→19:48)
[2023-08-21] MEDS: HEPARIN 5000 UNITS SC ×2 (08:56→19:47)
[2023-08-21] MEDS: HIPREX 1 GRAM PO ×2 (08:58→19:48)
[2023-08-21] MEDS: TYLENOL 1000 MG PO ×3 (08:58→19:57)
[2023-08-21] MEDS: PROTONIX 40 MG PO (08:58)
[2023-08-21] MEDS: ASPIRIN 325 MG PO (08:58)
[2023-08-21] MEDS: BYSTOLIC 10 MG PO (08:58)
[2023-08-21] MEDS: NORVASC 2.5 MG PO (08:58)
[2023-08-21] MEDS: DIFLUCAN 200 MG PO (08:58)
[2023-08-21] MEDS: SEROQUEL 25 MG PO (08:59)
[2023-08-21] MEDS: DILAUDID 0.5 MG IV (09:05)
--- NOTE | 2023-08-21 09:34 | W.PN.HOSP.TC ---
Today's Communication/Plan
-
hold seroquel
pt/ot with NWB LLE
Assessment / Plan
Assessment / Plan
#Acute periprosthetic left femur fracture
Patient's surgical risk has been calculated, and found to be low
The benefits of the surgery will outweigh her risks. She may proceed for surgery
Dr. Ortega consulted, s/p ORIF
No weight bearing on LLE per ortho
#Closed head injury
Patient reports hitting her head
Head CT neg.
#Left hand ecchymosis
Left wrist xr without acute changes.
#mild TME
avoid sedative medication, discontinue seroquel
UA clean
continue monitor
#Leukocytosis -resolved
She is afebrile, no signs or symptoms of infection
#Acute on chronic ambulatory dysfunction
Uses a walker at baseline
#PHONG - reoccured
maintain on IVF, follow renal function
avoid nephrotoxic medication
bladder scan ordered
#Paroxysmal atrial fibrillation
No longer on anticoagulation due to recurrent falls
Continue Bystolic 10 mg daily for rate control
Patient scheduled for Watchman device in a few weeks
#Dementia
#Anxiety/depression
Continue Aricept, Namenda, escitalopram, Seroquel
Resides in [place] with geriatric personal care aide
#Benign essential hypertension
Continue amlodipine 2.5 mg daily
#Hyperlipidemia
Continue statin, Zetia
#Hypothyroidism
Continue levothyroxine
#Gastroesophageal reflux disease
Continue PPI
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
Continue fluconazole
#History of recurrent UTIs
Continue methenamine
DVT prophylaxis�subcu heparin (would hold day of surgery)
Full code confirmed with daughter Vidhi Bruno [phone]
Anticipated Discharge: 24 - 48 hours
Subjective/Interval History
-
Date of Service: August 21, 2023
Patient confused and somnolent today
Afebrile overnight
No acute issues reported
Objective Data
-
Labs:
Laboratory Results
08/21/23
07:46
WBC 16.4 H
Hgb 8.5 L
Hct 24.5 L
Plt Count 159
Sodium 136
Potassium 4.6
Chloride 111 H
Carbon Dioxide 20 L
BUN 28 H
Creatinine 1.2 H
Glucose 141 H
Calcium 7.7 L
Vital Signs:
Vital Signs
Temp Pulse Resp BP Pulse Ox
98.1 F 68 18 109/54 97
08/21/23 07:00 08/21/23 07:00 08/21/23 07:00 08/21/23 07:00 08/21/23 07:00
I&O
08/20/23 08/21/23 08/22/23
06:59 06:59 06:59
Intake Total 2480 / 2480 320 / 320
Output Total 1200 / 1200 500 / 500
Balance 1280 / 1280 -180 / -180
Review of Systems
-
Unable to obtain full review of systems at this time due to: Acuity
Physical Exam
-
General: Obese; Negative Respiratory Distress or Appears in Distress
HEENT: Negative Oxygen
Respiratory: Clear to Auscultation
Cardiac: Regular Rhythm and S1/S2; Negative Murmur
Musculoskeletal: Edema, Left Lower Extrem and Other (Left leg immobilizer in place)
Neuro: No Motor Deficits and Sedated
Psych: Calm
[2023-08-21 09:59] VITALS: BP 131/54; BP 83/50; BP 87/47; O2SAT 95
[2023-08-21 10:02] VITALS: BP 83/50; BP 87/47; PULSE 70; O2SAT 99
--- NOTE | 2023-08-21 13:44 | CM ---
credit risk manager continues to follow with patient progress notes and physical therapy are recommending skilled placement, options reviewed with patient and daughter and they have selected [facility], per patient's daughter she would like patient's
private caregiver to be with patient during the day at [facility], pillowcase cleaner reached out to Tanna is admissions at the [facility] who has agreed to have private care fiver at [facility] senior care facility.
Plan; Referral sent to the [facility].
[2023-08-21 15:00] VITALS: BP 108/53
[2023-08-21] MEDS: ZETIA 10 MG PO (21:30)
[2023-08-21] MEDS: LIPITOR 40 MG PO (21:30)
[2023-08-21] MEDS: LEXAPRO 10 MG PO (21:30)
[2023-08-21 22:48] VITALS: BP 107/50
[2023-08-22] VITALS (7 sets, daily range): BP systolic 108–129; BP diastolic 53–68
[2023-08-22] MEDS: DILAUDID 0.5 MG IV (01:33)
[2023-08-22] MEDS: SYNTHROID 75 MCG PO (05:22)
[2023-08-22 07:52] LABS: Hematocrit 21.3 % (37.0-47.0); Hemoglobin 7.3 g/dL (12.0-16.0); Mean Corp Hgb Conc. 34.3 g/dL (33.0-37.0); Mean Corpuscular Hgb 29.9 pg (27.0-31.0); Mean Corpuscular Volume 87.3 fL (81.0-99.0); Mean Platelet Volume 11.3 fL (7.4-10.4); Platelet Count 168 10^3/uL (130-400); Red Blood Cell Count 2.44 10^6/uL (4.20-5.40); White Blood Cell Count 17.6 10^3/uL (4.8-10.8)
[2023-08-22 08:31] LABS: Blood Urea Nitrogen 28 mg/dl (7-17); Calcium 8.1 mg/dl (8.4-10.2); Carbon Dioxide 22 mmol/L (22-30); Chloride 109 mmol/L (98-107); Estimated Creatinine Clearance 43 ml/min; Glucose 108 mg/dl (70-99); Potassium 4.3 mmol/L (3.5-5.1); Sodium 137 mmol/L (135-145); eGFR 56.25
--- NOTE | 2023-08-22 08:59 | W.PN.ORTHO ---
Today's Communication / Plan
-
Appreciate the hospitalists attending, continue Tx
Hgb 7.3 today, trending
Disp likely SNF, appreciate CM
Continue strict NWB LLE on walker/assistance
PT/OT, encourage knee ROM
ASA 325mg daily x 4 weeks for DVT ppx
Pain control, ice and elevation
Dressings to remain 10 days
[place] out in 2 weeks (SNF is fine)
Orthopaedics to sign off for now, please reengage during this admission should any pertinent questions arise
Assessment
.
Distal Motor Intact: Yes
Dressing:
Clean, dry and intact. Aquacels in place left thigh. Mild strikethrough, contained
Assessment:
POD#2 ORIF left periprosthetic femur fracture
overall, all things considered, doing/feeling well
DNVI LLE
Plan
.
Surgery / Date: ORIF L periprosthetic femur fracture 08/19 [place]
DVT Prophylaxis: Aspirin
Activity:
Out of bed. Strict NWB LLE
PT/OT
Discharge Plan: SNF
Subjective
.
.:
Patient resting comfortably. mild pain about the left thigh
Vital Signs and Labs
.
Vital Signs and Labs:
Lab Results
08/22/23 06:35
08/22/23 06:35
Temp Pulse Resp BP Pulse Ox
97.9 F 78 18 112/53 97
08/22/23 07:00 08/22/23 07:00 08/22/23 07:00 08/22/23 07:00 08/22/23 07:00
PT 14.6 Sec (11.4-14.6) 08/17/23 17:33
INR 1.16 08/17/23 17:33
[2023-08-22] MEDS: HEPARIN 5000 UNITS SC ×2 (09:23→21:52)
[2023-08-22] MEDS: MIRALAX 17 GRAMS PO ×2 (09:23→21:53)
[2023-08-22] MEDS: DIFLUCAN 200 MG PO (09:24)
[2023-08-22] MEDS: NORVASC 2.5 MG PO (09:24)
[2023-08-22] MEDS: HIPREX 1 GRAM PO ×2 (09:24→21:52)
[2023-08-22] MEDS: PROTONIX 40 MG PO (09:24)
[2023-08-22] MEDS: BYSTOLIC 10 MG PO (09:24)
[2023-08-22] MEDS: ASPIRIN 325 MG PO (09:24)
[2023-08-22] MEDS: TYLENOL 1000 MG PO ×3 (09:24→21:53)
[2023-08-22] MEDS: ESTRACE 0.01% VAGINAL CREAM 1 APPLIC VAG (09:25)
--- NOTE | 2023-08-22 10:08 | W.PN.HOSP.TC ---
Today's Communication/Plan
-
1 u prbc
stop further IVF
continue holding seroquel
rehab d/c today vs tomorrow
Assessment / Plan
Assessment / Plan
#Acute periprosthetic left femur fracture
Patient's surgical risk has been calculated, and found to be low
The benefits of the surgery will outweigh her risks. She may proceed for surgery
Dr. Ortega consulted, s/p ORIF on 08/19
No weight bearing on LLE per ortho
# Acute blood loss anemia from sx
hbg 7.3 today, giving 1 u prbc
#Closed head injury
Patient reports hitting her head
Head CT neg.
#Left hand ecchymosis
Left wrist xr without acute changes.
#mild TME -resolved
avoid sedative medication, discontinue seroquel
UA clean
continue monitor
#Leukocytosis
She is afebrile, no signs or symptoms of infection
continue monitor
#Acute on chronic ambulatory dysfunction
Uses a walker at baseline
#PHONG - resolved
stop further IVF
avoid nephrotoxic medication
bladder scan ordered
#Paroxysmal atrial fibrillation
No longer on anticoagulation due to recurrent falls
Continue Bystolic 10 mg daily for rate control
Patient scheduled for Watchman device in a few weeks
#Dementia
#Anxiety/depression
Continue Aricept, Namenda, escitalopram, Seroquel
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
#Benign essential hypertension
Continue amlodipine 2.5 mg daily
#Hyperlipidemia
Continue statin, Zetia
#Hypothyroidism
Continue levothyroxine
#Gastroesophageal reflux disease
Continue PPI
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
Continue fluconazole
#History of recurrent UTIs
Continue methenamine
DVT prophylaxis�subcu heparin (would hold day of surgery)
Full code confirmed with daughter Vidhi Bruno [phone]
Anticipated Discharge: Within 24 hours
Subjective/Interval History
-
Date of Service: August 22, 2023
Patient somnolence completely cleared and communicative today
No other problems
Objective Data
-
Labs:
Laboratory Results
08/22/23
06:35
WBC 17.6 H
Hgb 7.3 L
Hct 21.3 L
Plt Count 168
Sodium 137
Potassium 4.3
Chloride 109 H
Carbon Dioxide 22
BUN 28 H
Creatinine 1.0
Glucose 108 H
Calcium 8.1 L
Vital Signs:
Vital Signs
Temp Pulse Resp BP Pulse Ox
97.9 F 78 18 112/53 97
08/22/23 07:00 08/22/23 07:00 08/22/23 07:00 08/22/23 07:00 08/22/23 07:00
I&O
08/21/23 08/22/23 08/23/23
06:59 06:59 06:59
Intake Total 320 / 320 1570 / 1570
Output Total 500 / 500 1800 / 1800
Balance -180 / -180 -230 / -230
Review of Systems
-
Respiratory: Reports No Symptoms
Cardiac: Reports No Symptoms
Abdomen/GI: Reports No Symptoms
Physical Exam
-
General: Obese; Negative Appears in Distress
HEENT: Negative Oxygen
Respiratory: Clear to Auscultation
Cardiac: Regular Rhythm and S1/S2; Negative Murmur
GI: Soft and Nontender
Musculoskeletal: Other (Left lateral thigh dressing in place - minimal dried up blood )
Neuro: Awake, Alert and No Motor Deficits
Psych: Calm
--- NOTE | 2023-08-22 10:51 | CM ---
Addendum entered by Bambi Marie 08/22/23 11:26:
Transport time changed to 10:30 a.m.
Addendum entered by Bambi Marie 08/22/23 11:15:
Transport scheduled for tomorrow, 08/23/23 at 11:00 a.m. Tanna at [facility] aware. CM left voicemail for patients daughter with transport time.
Plan; [facility] SNF by ambulance 08/23/23, 11:00 a.m. transport time
Report: [phone]

Original Note:
CM spoke with Tanna from [facility], can accept patient for skilled. Plan for discharge tomorrow with a morning transport, awaiting confirmation time. CM spoke with patients daughter Vidhi on phone, reviewed IMM, will email to
[email or web address]. CM will call patients daughter to update transportation time. Covid test requested by [facility] Andrade sent to Hospitalist. CM will continue to follow for discharge planning needs.
Plan; [facility] with private caregiver, 08/23/23, awaiting confirmation time
[2023-08-22] MEDS: LEXAPRO 10 MG PO (21:53)
[2023-08-22] MEDS: LIPITOR 40 MG PO (21:53)
[2023-08-22] MEDS: ZETIA 10 MG PO (21:54)
[2023-08-23] MEDS: SYNTHROID 75 MCG PO (06:09)
[2023-08-23 06:49] LABS: Hematocrit 26.9 % (37.0-47.0); Mean Corp Hgb Conc. 34.6 g/dL (33.0-37.0); Mean Corpuscular Hgb 29.8 pg (27.0-31.0); Mean Corpuscular Volume 86.2 fL (81.0-99.0); Mean Platelet Volume 10.3 fL (7.4-10.4); Platelet Count 190 10^3/uL (130-400); Red Blood Cell Count 3.12 10^6/uL (4.20-5.40); Red Cell Dist. Width 15.5 % (11.5-14.5); White Blood Cell Count 14.8 10^3/uL (4.8-10.8)
[2023-08-23 06:50] LABS: Hemoglobin 9.3 g/dL (12.0-16.0)
[2023-08-23 07:10] LABS: Blood Urea Nitrogen 24 mg/dl (7-17); Calcium 8.4 mg/dl (8.4-10.2); Carbon Dioxide 23 mmol/L (22-30); Chloride 110 mmol/L (98-107); Estimated Creatinine Clearance 53 ml/min; Glucose 97 mg/dl (70-99); Potassium 3.8 mmol/L (3.5-5.1); Sodium 136 mmol/L (135-145); eGFR > 60.00
[2023-08-23 07:59] VITALS: BP 142/68
[2023-08-23] MEDS: TYLENOL 1000 MG PO (08:42)
[2023-08-23] MEDS: NORVASC 2.5 MG PO (08:42)
[2023-08-23] MEDS: HIPREX 1 GRAM PO (08:42)
[2023-08-23] MEDS: PROTONIX 40 MG PO (08:42)
[2023-08-23] MEDS: DIFLUCAN 200 MG PO (08:42)
[2023-08-23] MEDS: ASPIRIN 325 MG PO (08:42)
[2023-08-23] MEDS: BYSTOLIC 10 MG PO (08:42)
[2023-08-23] MEDS: HEPARIN 5000 UNITS SC (08:43)
[2023-08-23] MEDS: MIRALAX PO (08:43)
[2023-08-23 10:38] LABS: COVID-19 Antigen Negative (Negative)
--- NOTE | 2023-08-23 11:02 | W.PN.HOSP.TC ---
Today's Communication/Plan
-
d/c snf rehab
Assessment / Plan
Assessment / Plan
#Acute periprosthetic left femur fracture
Patient's surgical risk has been calculated, and found to be low
The benefits of the surgery will outweigh her risks. She may proceed for surgery
Dr. Ortega consulted, s/p ORIF on 08/19
No weight bearing on LLE per ortho
# Acute blood loss anemia from sx
hbg 9.3 after 1 unit of PRBC.
#Closed head injury
Patient reports hitting her head
Head CT neg.
#Left hand ecchymosis
Left wrist xr without acute changes.
#mild TME -resolved
avoid sedative medication, discontinue seroquel
UA clean
continue monitor
#Leukocytosis
Reactive and improving
She is afebrile, no signs or symptoms of infection
#Acute on chronic ambulatory dysfunction
Uses a walker at baseline
#PHONG - resolved
stop further IVF
avoid nephrotoxic medication
bladder scan ordered
#Paroxysmal atrial fibrillation
No longer on anticoagulation due to recurrent falls
Continue Bystolic 10 mg daily for rate control
Patient scheduled for Watchman device in a few weeks
#Dementia
#Anxiety/depression
Continue Aricept, Namenda, escitalopram, Seroquel
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
#Benign essential hypertension
Continue amlodipine 2.5 mg daily
#Hyperlipidemia
Continue statin, Zetia
#Hypothyroidism
Continue levothyroxine
#Gastroesophageal reflux disease
Continue PPI
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
Continue fluconazole
#History of recurrent UTIs
Continue methenamine
DVT prophylaxis�subcu heparin (would hold day of surgery)
Full code confirmed with daughter Vidhi Bruno [phone]
More than 30 minutes spent in discharge including
Final examination of the patient
Summarizing hospital stay
Instructions for continuing care to all relevant caregivers
Preparation of discharge records, prescriptions, and referral forms
Total time spent (in minutes): 40 mins
Anticipated Discharge: Today
Subjective/Interval History
-
Date of Service: August 23, 2023
No acute issues reported overnight
Patient remains pleasantly disoriented
Objective Data
-
Labs:
Laboratory Results
08/23/23
06:39
WBC 14.8 H
Hgb 9.3 L D
Hct 26.9 L
Plt Count 190
Sodium 136
Potassium 3.8
Chloride 110 H
Carbon Dioxide 23
BUN 24 H
Creatinine 0.8
Glucose 97
Calcium 8.4
Vital Signs:
Vital Signs
Temp Pulse Resp BP Pulse Ox
97.6 F 83 18 142/68 97
08/23/23 07:59 08/23/23 07:59 08/23/23 07:59 08/23/23 08:42 08/23/23 07:59
I&O
08/22/23 08/23/23 08/24/23
06:59 06:59 07:59
Intake Total 1570 / 1570 850 / 850
Output Total 1800 / 1800 1500 / 1500
Balance -230 / -230 -650 / -650
Review of Systems
-
Respiratory: Reports No Symptoms
Cardiac: Reports No Symptoms
Abdomen/GI: Reports No Symptoms
Physical Exam
-
General: Obese; Negative Appears in Distress
HEENT: Negative Oxygen
Respiratory: Clear to Auscultation
Cardiac: Regular Rhythm and S1/S2; Negative Murmur
GI: Soft and Nontender
Musculoskeletal: Other (Left lateral thigh dressing in place - minimal dried up blood )
Neuro: Awake, Alert and No Motor Deficits
Psych: Calm
--- NOTE | 2023-08-23 11:50 | W.DCSUMMARY ---
Discharge Summary
Discharge Data
Date of Admission: 08/17/23
Date of Discharge: 08/23/23
-
Pending Results: No
Hospital Course
Discharging Physician : Dr Jem Flores
Disposition : To SNF rehab
Primary care physician : Dr Shaquille Shea
Principal Discharge diagnosis :
Periprosthetic left femoral fracture
Active loss anemia from surgery
Left hand ecchymosis
Mild toxic metabolic encephalopathy
Acute kidney injury
Reactive leukocytosis
Chronic Discharge diagnosis :
Paroxysmal atrial fibrillation
Dementia without behavioral problems
Anxiety/depression
Essential hypertension
Hyperlipidemia
Hypothyroidism
Gastroesophageal reflux disease
History of right shoulder prosthetic joint infection s/p revision on chronic fluconazole suppression therapy
History of recurrent urine tract infection
Hospital Course :
Patient is 82-year-old female with above-mentioned past medical history came to ER with new onset of left leg pain after having a mechanical fall. Patient was walking around with walker in a dining room and patient ended up having a fall. In ER
patient had femur and hip x-ray of left leg and which showed a periprosthetic left femur fracture. Patient also had a CT head for suspicion of head injury and was negative. Left hand x-ray was negative for any fracture and was showing degenerative
changes only. Orthopedic surgery were involved in care and patient was taken to the OR with surgical fixation of left distal prostatic femur fracture. Postprocedure course uncomplicated except requiring 1 unit blood transfusion likely from
surgical blood loss. Patient to remain nonweightbearing on left leg. Patient also had some mild encephalopathy likely combination of narcotics and home medication use. Patient was taken off of Seroquel and narcotics and mentation cleared.
Patient also had acute kidney injury which resolved with IV hydration. No signs of postrenal renal failure. Post medical improvement patient was discharged to half-way facility for rehab.
Important imaging findings :
None
Procedure findings :
None
Discharge Plan
-
Patient Disposition: Halfway/SNF
Discharge Diagnosis/Procedures: Left jackelyn-prosthetic femur fracture, Blood loss anemia, medication induced encephalopathy
Condition: Fair
Diet: Regular
Activity: Do not bear weight L leg
Additional Activity: Continue strict NWB LLE on walker/assistance
Driving Restrictions: No driving
Wound Care: Dressings to remain 10 days. Remi out in 2 weeks at [facility].
Referrals:
Shaquille Shea MD [Family Provider] - in one week
Victorino Ortega MD [Active] - in one month
Prescriptions:
New
polyethylene glycol 3350 [HealthyLax] 17 gram Powder In Packet
17 g PO BID Qty: 30 0RF
aspirin 325 mg Tablet
325 mg PO DAILY Qty: 30 0RF
Rx Instructions:
LAST DOSE 09/22/23 and THEN STOP
acetaminophen [Tylenol Extra Strength] 500 mg Tablet
1,000 mg PO TID PRN (Reason: Pain) Qty: 60 0RF
oxycodone 5 mg tablet
5 mg PO Q8H PRN (Reason: Sev pain) Qty: 14 0RF
Continued
nebivolol [Bystolic] 10 mg Tablet
10 mg PO DAILY
atorvastatin 40 mg Tablet
40 mg PO HS
levothyroxine 75 mcg Tablet
75 mcg PO DAILY
donepezil 10 mg Tablet
10 mg PO DAILY
fluconazole 200 mg tablet
200 mg PO DAILY
amlodipine 2.5 mg tablet
2.5 mg PO DAILY
methenamine hippurate 1 gram tablet
1 g PO BID
omeprazole 40 mg Capsule,Delayed Release(Dr/Ec)
40 mg PO DAILY
escitalopram oxalate 10 mg Tablet
10 mg PO HS
ascorbic acid (vitamin C) [Vitamin C] 1,000 mg Tablet
1,000 mg PO DAILY
cranberry 400 mg Capsule
400 mg PO DAILY
estradiol 0.01 % (0.1 mg/gram) Cream
1 appful VAGINAL .3 TIMES A WEEK
Patient Comments:
08/17/23- caregiver unsure of which days pt. applies this medication.
fluticasone propionate 50 mcg/actuation [place],Suspension
1 spray INTRANASAL DAILY PRN (Reason: congestion)
ezetimibe 10 mg Tablet
10 mg PO HS
Changed
quetiapine [Seroquel] 25 mg Tablet
25 mg PO BID@0800,1600 PRN (Reason: Agitation) Qty: 0 0RF
Discontinued
quetiapine 50 mg tablet
50 mg PO HS
Discharge Orders:
Discharge Patient (As Directed); Ordered 08/23/23
Ordered By: Jem Flores
Discharge Date and Time
Discharge Date/Time: 08/23/23 11:29
== END 2023-08-23 11:29 | DRG 480 ==
LOC: 4 WEST ACU 17:45
PROVIDERS: Nurse Practitioner; Physician Assistant Medical; ADMITTING PHYSICIAN Family Medicine; ATTENDING PHYSICIAN Hospitalist; CONSULT PHYSICIAN Orthopaedic Surgery; EMERGENCY PHYSICIAN Emergency Medicine; FAMILY PHYSICIAN Internal Medicine Geriatric Medicine
PROC: 30233N1 Transfusion of Nonautologous Red Blood Cells into Peripheral Vein, Percutaneous Approach (ICD-10-PCS; 2023-08-20)
PROC: 0QS904Z Reposition Left Femoral Shaft with Internal Fixation Device, Open Approach (ICD-10-PCS; 2023-08-20)
DX: S72.352A Displaced comminuted fracture of shaft of left femur, initial encounter for closed fracture (principal); G92.8 Other toxic encephalopathy; F03.93 Unspecified dementia, unspecified severity, with mood disturbance; F03.94 Unspecified dementia, unspecified severity, with anxiety; M97.12XA Periprosthetic fracture around internal prosthetic left knee joint, initial encounter; M97.02XA Periprosthetic fracture around internal prosthetic left hip joint, initial encounter; N17.9 Acute kidney failure, unspecified; D62 Acute posthemorrhagic anemia; T40.695A Adverse effect of other narcotics, initial encounter; T43.595A Adverse effect of other antipsychotics and neuroleptics, initial encounter; S09.90XA Unspecified injury of head, initial encounter; S60.222A Contusion of left hand, initial encounter; W01.0XXA Fall on same level from slipping, tripping and stumbling without subsequent striking against object, initial encounter; I48.0 Paroxysmal atrial fibrillation; I10 Essential (primary) hypertension; E03.9 Hypothyroidism, unspecified; F32.A Depression, unspecified; K21.9 Gastro-esophageal reflux disease without esophagitis; E78.00 Pure hypercholesterolemia, unspecified; D72.829 Elevated white blood cell count, unspecified; R29.6 Repeated falls; Z96.611 Presence of right artificial shoulder joint; Z96.642 Presence of left artificial hip joint; Z96.653 Presence of artificial knee joint, bilateral; Z96.612 Presence of left artificial shoulder joint; Z87.440 Personal history of urinary (tract) infections; Z11.52 Encounter for screening for COVID-19
CPT/HCPCS: 70450; 71045; 73130; 73552; 73700; 76000; 80048; 80053; 81003; 84484; 85014; 85018; 85025; 85027; 85610; 86850; 86900; 86901; 86920; 87811; 93005; 96374; 97163; 97167; 99285; C1713; C1769; P9016; P9040

== ENCOUNTER 2024-01-08 18:45 | Emergency (ER) | payer MEDICARE, BC, SELFPAY ==
[2024-01-08 18:50] VITALS: BP 134/68
[2024-01-08 20:16] LABS: % Basophils 0.4 % (0-2); % Eosinophils 0.6 % (0-6); % Immature Granulocytes 0.5 % (0-0.5); % Lymphocytes 10.6 % (20.5-51.1); % Monocytes 7.3 % (1.7-9.3); % Neutrophils 80.6 % (42.2-75.2); Absolute Basophils 0.1 10^3/uL (0-0.2); Absolute Eosinophils 0.1 10^3/uL (0-0.7); Absolute Immature Granulocytes 0.1 10^3/uL (0-0.05); Absolute Lymphocytes 1.3 10^3/uL (1.2-3.4); Absolute Monocytes 0.9 10^3/uL (0.1-0.6); Absolute Neutrophils 10.1 10^3/uL (1.4-6.5); Hematocrit 36.4 % (37.0-47.0); Hemoglobin 12.8 g/dL (12.0-16.0); Mean Corp Hgb Conc. 35.2 g/dL (33.0-37.0); Mean Corpuscular Hgb 29.5 pg (27.0-31.0); Mean Corpuscular Volume 83.9 fL (81.0-99.0); Mean Platelet Volume 10.7 fL (7.4-10.4); Nucleated Red Blood Cells % 0 %; Platelet Count 246 10^3/uL (130-400); Red Blood Cell Count 4.34 10^6/uL (4.20-5.40); Red Cell Dist. Width 15.4 % (11.5-14.5); White Blood Cell Count 12.5 10^3/uL (4.8-10.8)
[2024-01-08 20:29] LABS: ALT (SGPT) 17 U/L (0-35); AST (SGOT) 32 U/L (14-36); Albumin 4.5 g/dl (3.5-5.0); Alkaline Phosphatase 121 U/L (38-126); Blood Urea Nitrogen 36 mg/dl (7-17); Calcium 9.7 mg/dl (8.4-10.2); Carbon Dioxide 22 mmol/L (22-30); Chloride 104 mmol/L (98-107); Glucose 124 mg/dl (70-99); Potassium 4.7 mmol/L (3.5-5.1); Sodium 136 mmol/L (135-145); Total Bilirubin 0.4 mg/dl (0.2-1.3); Total Protein 7.4 g/dl (6.3-8.2); eGFR 49.86
--- NOTE | 2024-01-08 21:27 | ED.GENMED ---
History of Present Illness
General
Chief Complaint: Hyper/Hypo Thermia Problem
Source: patient
Time Seen by Provider: 01/08/24 21:05
History of Present Illness
History of Present Illness:
83-year-old female presents to the emergency room for evaluation of chills. Patient noted to be shivering by her caregiver. Patient resides at [facility]. Patient has had UTIs in the past. Caregiver concerned that she may be developing UTI.
No nausea or vomiting. Patient has a mild cough. Caregiver feels she is more confused than baseline as well.
Past History
Past History
ED Past Medical History: GERD, HTN, Hypercholesterolemia, Hypothyroidism, Psychiatric and Other (Dementia)
ED Past Surgical History: Orthopedic (left THR, TKR) and Other
Social History
Tobacco: Non-smoker
Alcohol: None
Drug: None
Personal:
Living: residential
Phy Exam
Physical Exam
Physical Exam:
General: Awake, Alert, Oriented X3. Appears stated age, mildly confused, intermittent chills
Vitals: Oral temp normal
Head: Atraumatic
Eyes: Pupils equal, EOMI
Throat: Airway intact, no exudates
Neck: Trachea midline
Lungs: Clear and equal b/l
Heart: Regular rate, no murmurs
Abd: Soft, Nontender, No pulsatile mass
Neuro: Nonfocal
Skin: Warm, dry, no rash
Extremities: pulses equal b/l, no edema, no wounds noted on the extremities
Course
Orders/Labs/Results
Orders:
Orders
01/08/24 20:10
Complete Blood Count/With Diff Urgent
Comprehensive Metabolic Panel Urgent
Lactic Acid Urgent
01/08/24 21:26
Straight cath- Treatment ONCE
CR Chest - 2 Views Urgent
Comment:
Reason For Exam: chills, cough
01/08/24 21:52
COVID-19 Antigen Urgent
Source: Nasal Swab
01/08/24 22:24
Urinalysis Reflex To Culture Urgent
Date Specimen was Collected: 01/08/24
Time Specimen was Collected: 22:23
01/09/24 00:15
CT Abd/pelvis W Iv Cont Urgent
Reason For Exam: lower abd pain
01/09/24 01:30
Acetaminophen [Tylenol] 650 mg PO NOW STA
Abnormal Lab Results
01/08/24
20:10
WBC 12.5 H 10^3/uL
(4.8-10.8)
Hct 36.4 L %
(37.0-47.0)
RDW 15.4 H %
(11.5-14.5)
MPV 10.7 H fL
(7.4-10.4)
Abs Immat Gran (auto) 0.1 H 10^3/uL
(0-0.05)
Absolute Neuts (auto) 10.1 H 10^3/uL
(1.4-6.5)
Absolute Monos (auto) 0.9 H 10^3/uL
(0.1-0.6)
Neutrophils % 80.6 H %
(42.2-75.2)
Lymphocytes % 10.6 L %
(20.5-51.1)
BUN 36 H mg/dl
(7-17)
Creatinine 1.1 H mg/dL
(0.6-1.0)
Glucose 124 H mg/dl
(70-99)
01/08/24 20:10
01/08/24 20:10
Vital Signs
Initial and Last Documented VS:
Initial Vital Signs
Temp Pulse Resp BP Pulse Ox
98.2 F 67 18 134/68 100
01/08/24 18:50 01/08/24 18:50 01/08/24 18:50 01/08/24 18:50 01/08/24 18:50
Last Documented Vital Signs
Temp Pulse Resp BP Pulse Ox
99.4 F 68 19 128/68 97
01/09/24 01:53 01/09/24 01:53 01/09/24 01:53 01/09/24 01:53 01/09/24 01:53
MDM/Problems Addressed
Differential Diagnosis Includes:
UTI, pneumonia, viral illness, COVID
MDM/Problems Addressed:
Patient presents with shakes and chills. She did not have an oral temperature but a rectal temperature was positive. This was treated with Tylenol. Extensive workup was performed looking for source of infection. No obvious bacterial infection
was noted. Suspect viral illness. Patient stable for discharge home as she seems back to her baseline. She understands to return for any worsening symptoms.
*Radiology
Radiology exam reviewed: radiology read reviewed
*Pulse Oximetry
Patient hypoxic: no
*Critical Care Note
Total Time (30-74mins, 75-104mins- exclusive of procedures): Not Applicable
ED Attending Note
-
Portions of this chart may have been created with voice recognition software.� Occasional wrong word or��sound alike� substitutions may have occurred due to the inherent limitations of voice recognition software.
Discharge Plan
Departure
Patient Disposition: Home (Routine Discharge)
Date of Disposition: 01/09/24
Time of Disposition: 01:29
Patient with high blood pressure during this ER visit?: No
Condition: Good
Discharge Problem:
Fever, Viral illness
Instructions: Fever, Adult (DC)
Prescriptions:
No Action
nebivolol [Bystolic] 10 mg Tablet
10 mg PO DAILY
atorvastatin 40 mg Tablet
40 mg PO HS
levothyroxine 75 mcg Tablet
75 mcg PO DAILY
donepezil 10 mg Tablet
10 mg PO DAILY
fluconazole 200 mg tablet
200 mg PO DAILY
amlodipine 2.5 mg tablet
2.5 mg PO DAILY
methenamine hippurate 1 gram tablet
1 g PO BID
omeprazole 40 mg Capsule,Delayed Release(Dr/Ec)
40 mg PO DAILY
escitalopram oxalate 10 mg Tablet
10 mg PO HS
ascorbic acid (vitamin C) [Vitamin C] 1,000 mg Tablet
1,000 mg PO DAILY
cranberry 400 mg Capsule
400 mg PO DAILY
estradiol 0.01 % (0.1 mg/gram) Cream
1 appful VAGINAL .3 TIMES A WEEK
Patient Comments:
08/17/23- caregiver unsure of which days pt. applies this medication.
fluticasone propionate 50 mcg/actuation [place],Suspension
1 spray INTRANASAL DAILY PRN (Reason: congestion)
ezetimibe 10 mg Tablet
10 mg PO HS
polyethylene glycol 3350 [HealthyLax] 17 gram Powder In Packet
17 g PO BID Qty: 30 0RF
aspirin 325 mg Tablet
325 mg PO DAILY Qty: 30 0RF
Rx Instructions:
LAST DOSE 09/22/23 and THEN STOP
acetaminophen [Tylenol Extra Strength] 500 mg Tablet
1,000 mg PO TID PRN (Reason: Pain) Qty: 60 0RF
quetiapine [Seroquel] 25 mg Tablet
25 mg PO BID@0800,1600 PRN (Reason: Agitation) Qty: 0 0RF
oxycodone 5 mg tablet
5 mg PO Q8H PRN (Reason: Sev pain) Qty: 14 0RF
Referrals:
Moncho Marley MD [Family Provider] -
Activity Restrictions/Additional Instructions:
Please return if you are feeling shortness of breath, abdominal pain, confusion or you have any concerns.
Interventions
Interventions:
*Risk Screen - Suicide Last Done: 01/08/24 18:50
*General Assessment Last Done: 01/08/24 18:50
*Neglect/Abuse Screening Last Done: 01/08/24 18:50
ED- Fall Risk Assessment Last Done: 01/08/24 22:03
*ED COVID-19 Vaccine History Last Done: 01/08/24 18:50
*Nursing Disposition Last Done: 01/09/24 02:07
ED- Neurological Assessment Last Done: 01/08/24 22:03
ED-Skin Assessment Last Done: 01/08/24 22:03
Discharge Date and Time
Discharge Date/Time: 01/09/24 02:07
Print Language: CAMBODIAN
[2024-01-08 22:02] VITALS: BP 151/60
[2024-01-08 22:03] VITALS: BMI 23.5
[2024-01-08 22:21] LABS: COVID-19 Antigen Negative (Negative)
[2024-01-08 22:30] VITALS: BP 142/59
[2024-01-08 22:30] LABS: Urine Albumin Negative (Neg - Trace); Urine Bilirubin Negative (Negative); Urine Character Clear (Clear); Urine Color Yellow; Urine Glucose Negative (Negative); Urine Ketone Negative (Negative); Urine Leukocyte Negative (Negative); Urine Nitrite Negative (Negative); Urine Occult Blood Negative (Negative); Urine Urobilinogen Negative (Neg - 1+)
[2024-01-08 23:00] VITALS: BP 143/61
[2024-01-08 23:30] VITALS: BP 96/75
[2024-01-09] MEDS: TYLENOL 650 MG PO (01:51)
[2024-01-09 01:53] VITALS: BP 128/68
== END 2024-01-09 02:07 | disposition home or self-care (01) ==
LOC: EMR 18:45
PROVIDERS: Emergency Medicine; EMERGENCY PHYSICIAN Emergency Medicine; FAMILY PHYSICIAN Internal Medicine
DX: B34.9 Viral infection, unspecified (principal); R50.9 Fever, unspecified; R05.9 Cough, unspecified; Z11.52 Encounter for screening for COVID-19; E03.9 Hypothyroidism, unspecified; E78.00 Pure hypercholesterolemia, unspecified; F03.90 Unspecified dementia, unspecified severity, without behavioral disturbance, psychotic disturbance, mood disturbance, and anxiety; K21.9 Gastro-esophageal reflux disease without esophagitis; I10 Essential (primary) hypertension; Z79.82 Long term (current) use of aspirin; Z96.652 Presence of left artificial knee joint; Z87.440 Personal history of urinary (tract) infections; Z88.1 Allergy status to other antibiotic agents; Z88.5 Allergy status to narcotic agent; Z88.2 Allergy status to sulfonamides
CPT/HCPCS: 99285; 71046; 74177; 80053; 81003; 83605; 85025; 87811; Q9967

== ENCOUNTER 2024-11-16 14:00 | Emergency (ER) | payer MEDICARE, BC, SELFPAY ==
[2024-11-16 14:12] VITALS: BP 150/75
[2024-11-16 18:35] LABS: Lactic Acid 1.2 mmol/L (0.7-2.0)
[2024-11-16 18:38] LABS: ALT (SGPT) 24 U/L (0-35); AST (SGOT) 28 U/L (14-36); Albumin 4.2 g/dl (3.5-5.0); Alkaline Phosphatase 86 U/L (38-126); Blood Urea Nitrogen 33 mg/dl (7-17); Calcium 9.4 mg/dl (8.4-10.2); Carbon Dioxide 23 mmol/L (22-30); Chloride 108 mmol/L (98-107); Glucose 98 mg/dl (70-99); Potassium 4.6 mmol/L (3.5-5.1); Sodium 139 mmol/L (135-145); Total Bilirubin 0.5 mg/dl (0.2-1.3); Total Protein 7.2 g/dl (6.3-8.2); eGFR > 60.00
[2024-11-16 19:27] LABS: % Basophils 0.4 % (0-2); % Eosinophils 2.1 % (0-6); % Immature Granulocytes 0.4 % (0-0.5); % Monocytes 8.5 % (1.7-9.3); % Neutrophils 60.6 % (42.2-75.2); Absolute Eosinophils 0.2 10^3/uL (0-0.7); Absolute Lymphocytes 2.4 10^3/uL (1.2-3.4); Absolute Monocytes 0.7 10^3/uL (0.1-0.6); Absolute Neutrophils 5.1 10^3/uL (1.4-6.5); Hematocrit 41.2 % (37.0-47.0); Hemoglobin 14.3 g/dL (12.0-16.0); Mean Corp Hgb Conc. 34.7 g/dL (33.0-37.0); Mean Corpuscular Hgb 30.3 pg (27.0-31.0); Mean Corpuscular Volume 87.3 fL (81.0-99.0); Mean Platelet Volume 10.5 fL (7.4-10.4); Nucleated Red Blood Cells % 0 %; Platelet Count 223 10^3/uL (130-400); Red Blood Cell Count 4.72 10^6/uL (4.20-5.40); Red Cell Dist. Width 14.7 % (11.5-14.5); White Blood Cell Count 8.4 10^3/uL (4.8-10.8)
--- NOTE | 2024-11-17 00:13 | ED.GENMED ---
History of Present Illness
General
Chief Complaint: Wound Check/Suture Removal
Source: patient and family
Exam Limitations: none
Time Seen by Provider: 11/16/24 17:38
Nursing documentation reviewed up to this point in time: agreed with
History of Present Illness
History of Present Illness:
Patient to ED with daughter and caregiver requesting a vascular ultrasound. She had a blister of distal right great toe. Blister open by sociology research assistant and she continues to follow with her sociology research assistant. Caregiver states they were given an rx for an
arterial US and is scheduled at [facility] tomorrow. Caregiver did not feel that the wound looked good today so podiatry advised them to come to ED. SHe had OT and PT today here so they came to E after. She denies fever/chills. NO drainage from
wound.
Past History
Past History
ED Past Medical History: GERD, HTN, Hypercholesterolemia, Hypothyroidism, Psychiatric and Other (Dementia)
ED Past Surgical History: Orthopedic (left THR, TKR) and Other
Social History
Tobacco: Non-smoker
Alcohol: None
Drug: None
Personal:
Living: shelter
Review of Systems
Review of Systems
All Other Systems: ROS reviewed and negative except as documented in HPI and ROS
Constitutional: Reports no symptoms
EENT: Reports no symptoms
Respiratory: Reports no symptoms
Cardiac: Reports no symptoms
ABD/GI: Reports no symptoms
Musculoskeletal: Reports no symptoms
Skin: Reports other (opened granulating blister on distal right great toe. No erythema or swelling. Painful to touch. Currently on antibiotic)
Neurological: Reports no symptoms
Psychiatric: Reports no symptoms
Phy Exam
General Physical Exam
General Presentation: well appearing and no apparent distress
General age: appears stated age
General Skin: warm and dry
General Habitus: normal
General Mental: alert
Musculoskeletal Exam
Musculoskeletal Exam: full ROM and neuro vasc intact (Palpable right dorsal pedis, PT by doppler. Foot/toes warm to touch. Cap refill approx 5 sec.)
Skin Exam
Skin Exam: other (granulating open blister right great toe. No evidence of necrosis. No drainage. No erythema.)
Psychiatric Exam
Psychiatric Exam: normal mood/affect
Course
Orders/Labs/Results
Orders:
Orders
11/16/24 17:52
Toes 2 Views, Right [CR Toe(s) Min 2 Vw Right] Urgent
Comment:
Reason For Exam: wound r great toe
Indicate Which Toe:: Great
11/16/24 18:15
CMP [Comprehensive Metabolic Panel] Urgent
Lactic Acid Urgent
11/16/24 19:21
Complete Blood Count/With Diff Urgent
Abnormal Lab Results
11/16/24 11/16/24
18:15 19:21
RDW 14.7 H %
(11.5-14.5)
MPV 10.5 H fL
(7.4-10.4)
Absolute Monos (auto) 0.7 H 10^3/uL
(0.1-0.6)
Chloride 108 H mmol/L
(98-107)
BUN 33 H mg/dl
(7-17)
11/16/24 19:21
11/16/24 18:15
Vital Signs
Initial and Last Documented VS:
Initial Vital Signs
Temp Pulse Resp BP Pulse Ox
97.6 F 57 16 150/75 99
11/16/24 14:12 11/16/24 14:12 11/16/24 14:12 11/16/24 14:12 11/16/24 14:12
Last Documented Vital Signs
Temp Pulse Resp BP Pulse Ox
97.6 F 57 16 150/75 99
11/16/24 14:12 11/16/24 14:12 11/16/24 14:12 11/16/24 14:12 11/16/24 14:12
*Radiology
Radiology exam reviewed: radiology read reviewed
*Pulse Oximetry
Patient hypoxic: no
*Critical Care Note
Total Time (30-74mins, 75-104mins- exclusive of procedures): Not Applicable
Update Note
Update Note:
Patient sent to ED by her sociology research assistant for vascular consult and vascular US. Patient has a wound on great toe. Caregiver was concerned that wound was worsening. Advised by sociology research assistant to come to ED. Wound is not necrotic. DP pulse is palpable, PT
by doppler. Labs reviewed, WBC normal. Dr. Copeland notified of patient status. Picuture of toe sent via tiger text. She agrees that emergent US an vascular consult is not indicated. Patient has a scheduled appt at [facility] tomorrow for US,
agrees to follow through with appointment.
ED Attending Note
-
Portions of this chart may have been created with voice recognition software.� Occasional wrong word or��sound alike� substitutions may have occurred due to the inherent limitations of voice recognition software.
Discharge Plan
Departure
Patient Disposition: Home (Routine Discharge)
Date of Disposition: 11/16/24
Time of Disposition: 19:31
Patient with high blood pressure during this ER visit?: No
Condition: Good
Covid-19: Not Applicable
Discharge Problem:
Visit for wound check
Instructions: Wound Care (DC)
Prescriptions:
No Action
nebivolol [Bystolic] 10 mg Tablet
10 mg PO DAILY
atorvastatin 40 mg Tablet
40 mg PO HS
levothyroxine 75 mcg Tablet
75 mcg PO DAILY
donepezil 10 mg Tablet
10 mg PO DAILY
fluconazole 200 mg tablet
200 mg PO DAILY
amlodipine 2.5 mg tablet
2.5 mg PO DAILY
methenamine hippurate 1 gram tablet
1 g PO BID
omeprazole 40 mg Capsule,Delayed Release(/Ec)
40 mg PO DAILY
escitalopram oxalate 10 mg Tablet
10 mg PO HS
ascorbic acid (vitamin C) [Vitamin C] 1,000 mg Tablet
1,000 mg PO DAILY
cranberry fruit 400 mg Capsule
400 mg PO DAILY
estradiol 0.01 % (0.1 mg/gram) Cream
1 appful VAGINAL .3 TIMES A WEEK
Patient Comments:
08/17/23- caregiver unsure of which days pt. applies this medication.
fluticasone propionate 50 mcg/actuation [place],Suspension
1 spray INTRANASAL DAILY PRN (Reason: congestion)
ezetimibe 10 mg Tablet
10 mg PO HS
polyethylene glycol 3350 [HealthyLax] 17 gram Powder In Packet
17 g PO BID Qty: 30 0RF
aspirin 325 mg Tablet
325 mg PO DAILY Qty: 30 0RF
Rx Instructions:
LAST DOSE 09/22/23 and THEN STOP
acetaminophen [Tylenol Extra Strength] 500 mg Tablet
1,000 mg PO TID PRN (Reason: Pain) Qty: 60 0RF
quetiapine [Seroquel] 25 mg Tablet
25 mg PO BID@0800,1600 PRN (Reason: Agitation) Qty: 0 0RF
oxycodone 5 mg tablet
5 mg PO Q8H PRN (Reason: Sev pain) Qty: 14 0RF
Referrals:
Moncho Marley MD [Family Provider, Internal Medicine]
Activity Restrictions/Additional Instructions:
Follow up with your sociology research assistant as scheduled
Interventions
Interventions:
*Risk Screen - Suicide Last Done: 11/16/24 14:12
*General Assessment Last Done: 11/16/24 15:07
*Neglect/Abuse Screening Last Done: 11/16/24 15:07
*ED- Fall Risk Assessment Last Done: 11/16/24 15:07
*ED COVID-19 Vaccine History Last Done: 11/16/24 15:07
*Nursing Disposition Last Done: 11/16/24 19:58
ED-Skin Assessment Last Done: 11/16/24 15:07
Discharge Date and Time
Discharge Date/Time: 11/16/24 19:59
Print Language: [id number]
== END 2024-11-16 19:59 | disposition home or self-care (01) ==
LOC: EMR 14:00
PROVIDERS: Nurse Practitioner; EMERGENCY PHYSICIAN Student in an Organized Health Care Education/Training Program; FAMILY PHYSICIAN Internal Medicine
DX: Z48.00 Encounter for change or removal of nonsurgical wound dressing (principal); E03.9 Hypothyroidism, unspecified; E78.00 Pure hypercholesterolemia, unspecified; F03.90 Unspecified dementia, unspecified severity, without behavioral disturbance, psychotic disturbance, mood disturbance, and anxiety; I10 Essential (primary) hypertension
CPT/HCPCS: 99284; 73660; 80053; 83605; 85025

== ENCOUNTER 2024-11-30 20:11 | Inpatient (IN) | payer MEDICARE, BC, SELFPAY ==
[2024-11-30 17:30] VITALS: BP 149/57
[2024-11-30 17:34] VITALS: BMI 34.0
[2024-11-30 17:57] LABS: % Basophils 0.4 % (0-2); % Eosinophils 2.8 % (0-6); % Immature Granulocytes 0.2 % (0-0.5); % Monocytes 8.3 % (1.7-9.3); % Neutrophils 58.3 % (42.2-75.2); Absolute Eosinophils 0.3 10^3/uL (0-0.7); Absolute Lymphocytes 2.8 10^3/uL (1.2-3.4); Absolute Monocytes 0.8 10^3/uL (0.1-0.6); Absolute Neutrophils 5.4 10^3/uL (1.4-6.5); Hematocrit 36.9 % (37.0-47.0); Hemoglobin 12.8 g/dL (12.0-16.0); Mean Corp Hgb Conc. 34.7 g/dL (33.0-37.0); Mean Corpuscular Hgb 30.5 pg (27.0-31.0); Mean Corpuscular Volume 88.1 fL (81.0-99.0); Mean Platelet Volume 10.4 fL (7.4-10.4); Nucleated Red Blood Cells % 0 %; Platelet Count 168 10^3/uL (130-400); Red Blood Cell Count 4.19 10^6/uL (4.20-5.40); Red Cell Dist. Width 14.7 % (11.5-14.5); White Blood Cell Count 9.3 10^3/uL (4.8-10.8)
[2024-11-30 18:11] LABS: ALT (SGPT) 19 U/L (0-35); AST (SGOT) 22 U/L (14-36); Albumin 3.9 g/dl (3.5-5.0); Alkaline Phosphatase 93 U/L (38-126); Blood Urea Nitrogen 40 mg/dl (7-17); Calcium 9.3 mg/dl (8.4-10.2); Carbon Dioxide 24 mmol/L (22-30); Chloride 108 mmol/L (98-107); Estimated Creatinine Clearance 40 ml/min; Glucose 118 mg/dl (70-99); Sodium 139 mmol/L (135-145); Total Bilirubin 0.4 mg/dl (0.2-1.3); Total Protein 6.8 g/dl (6.3-8.2); eGFR 49.55
--- NOTE | 2024-11-30 18:11 | ED.GENMED ---
History of Present Illness
General
Chief Complaint: Skin Problem
Time Seen by Provider: 11/30/24 17:25
History of Present Illness
History of Present Illness:
84-year-old female with history of blood pressure, hyperlipidemia, dementia presenting for worsening wound to the right first toe. Patient went to podiatry today, was sent in due to poor wound healing. Patient had reportedly been getting
antibiotics at home. However, wound has been worsening. Patient was seen in the hospital on 11/17 for wound check. At that time noted to be without significant signs of infection. Patient denies any fever. She denies any significant pain or
additional acute medical complaints.
Past History
Past History
ED Past Medical History: GERD, HTN, Hypercholesterolemia, Hypothyroidism, Psychiatric and Other (Dementia)
ED Past Surgical History: Orthopedic (left THR, TKR) and Other
Social History
Tobacco: Non-smoker
Alcohol: None
Drug: None
Personal:
Living: prison
Phy Exam
Physical Exam
Physical Exam:
General: Well-appearing, no clinical signs of dehydration, nontoxic and in no acute distress
HEENT: protecting airway
Neck: appears supple
CV: Normal heart rate, regular rhythm
Resp: No accessory muscle use, no increased work of breathing, lungs clear to auscultation bilaterally
Abd: No distention
Extremities: Swelling and erythema to the right first toe with wound at the most distal aspect. No active drainage. Sensation grossly intact. Pulses intact
Neuro: alert, no focal neurologic deficit
: deferred
Rectal: deferred
Psych: Normal affect
Skin: Intact
Course
Orders/Labs/Results
Orders:
Orders
11/30/24 17:33
Foot, Right 3 View [CR Foot - Right Min 3 Views] Urgent
Comment:
Reason For Exam: 1st toe infection
11/30/24 17:48
Complete Blood Count/With Diff Urgent
Comprehensive Metabolic Panel Urgent
Prothrombin Time Urgent
Abnormal Lab Results
11/30/24
17:48
RBC 4.19 L 10^6/uL
(4.20-5.40)
Hct 36.9 L %
(37.0-47.0)
RDW 14.7 H %
(11.5-14.5)
Absolute Monos (auto) 0.8 H 10^3/uL
(0.1-0.6)
11/30/24 17:48
Vital Signs
Initial and Last Documented VS:
Initial Vital Signs
Temp Pulse Resp BP Pulse Ox
97.8 F 74 17 149/57 97
11/30/24 17:30 11/30/24 17:30 11/30/24 17:30 11/30/24 17:30 11/30/24 17:30
Last Documented Vital Signs
Temp Pulse Resp BP Pulse Ox
97.8 F 74 17 149/57 97
11/30/24 17:30 11/30/24 17:30 11/30/24 17:30 11/30/24 17:30 11/30/24 17:30
MDM/Problems Addressed
MDM/Problems Addressed:
84-year-old female with history of diabetes and dementia presenting for concern of infected right first toe, sent in by podiatry. Vital signs on arrival are normal.
On exam patient resting comfortably, no acute distress or discomfort. Patient's aide arrived to the hospital. Patient is currently following with Dr. Sandy Lamb, wound clean prior to arrival and patient subsequently sent in. Patient's aide
does note that patient has been on antibiotics, recently finished a course and wound is worsening, sent in for IV antibiotics. Patient otherwise hemodynamically stable, nontoxic. Will plan for laboratory analysis, x-ray imaging and plan for
admission for antibiotics.
*Critical Care Note
Total Time (30-74mins, 75-104mins- exclusive of procedures): Not Applicable
ED Attending Note
-
Portions of this chart may have been created with voice recognition software.� Occasional wrong word or��sound alike� substitutions may have occurred due to the inherent limitations of voice recognition software.
Discharge Plan
Departure
Prescriptions:
No Action
nebivolol [Bystolic] 10 mg Tablet
10 mg PO DAILY
atorvastatin 40 mg Tablet
40 mg PO HS
levothyroxine 75 mcg Tablet
75 mcg PO DAILY
donepezil 10 mg Tablet
10 mg PO DAILY
fluconazole 200 mg tablet
200 mg PO DAILY
amlodipine 2.5 mg tablet
2.5 mg PO DAILY
methenamine hippurate 1 gram tablet
1 g PO BID
omeprazole 40 mg Capsule,Delayed Release(Dr/Ec)
40 mg PO DAILY
escitalopram oxalate 10 mg Tablet
10 mg PO HS
ascorbic acid (vitamin C) [Vitamin C] 1,000 mg Tablet
1,000 mg PO DAILY
cranberry fruit 400 mg Capsule
400 mg PO DAILY
estradiol 0.01 % (0.1 mg/gram) Cream
1 appful VAGINAL .3 TIMES A WEEK
Patient Comments:
08/17/23- caregiver unsure of which days pt. applies this medication.
fluticasone propionate 50 mcg/actuation [place],Suspension
1 spray INTRANASAL DAILY PRN (Reason: congestion)
ezetimibe 10 mg Tablet
10 mg PO HS
polyethylene glycol 3350 [HealthyLax] 17 gram Powder In Packet
17 g PO BID Qty: 30 0RF
aspirin 325 mg Tablet
325 mg PO DAILY Qty: 30 0RF
Rx Instructions:
LAST DOSE 09/22/23 and THEN STOP
acetaminophen [Tylenol Extra Strength] 500 mg Tablet
1,000 mg PO TID PRN (Reason: Pain) Qty: 60 0RF
quetiapine [Seroquel] 25 mg Tablet
25 mg PO BID@0800,1600 PRN (Reason: Agitation) Qty: 0 0RF
oxycodone 5 mg tablet
5 mg PO Q8H PRN (Reason: Sev pain) Qty: 14 0RF
Referrals:
Moncho Marley MD [Family Provider, Internal Medicine]
Interventions
Interventions:
*Risk Screen - Suicide Last Done: 11/30/24 17:30
*General Assessment Last Done: 11/30/24 17:30
*Neglect/Abuse Screening Last Done: 11/30/24 17:30
*ED- Fall Risk Assessment Last Done: 11/30/24 17:30
*ED COVID-19 Vaccine History Last Done: 11/30/24 17:30
ED-Skin Assessment Last Done: 11/30/24 17:30
Discharge Date and Time
Print Language: SETSWANA
[2024-11-30 18:12] LABS: INR 1.05
[2024-11-30 19:00] VITALS: BP 102/85
[2024-11-30 20:00] VITALS: BP 114/76
--- NOTE | 2024-11-30 20:10 | HPS.HSE ---
Addendum entered and electronically signed by Anh Devine MD 11/30/24 21:35:
Clarification: Patient would want CPR and intubation in emergent situation.
Addendum entered and electronically signed by Anh Devine MD 11/30/24 21:27:
Living will states Patient should be DNR if patient in Vegetative state.
Original Note:
Family Physician
-
Family Physician: Moncho Arce
Chief Complaint
-
right big toe ulcer
History of Present Illness
84-year-old female past medical history of periprosthetic left femoral fracture, paroxysmal atrial fibrillation status post Watchman, dementia, anxiety/depression, hypertension, hyperlipidemia, hypothyroidism, GERD, history of right shoulder
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 Patient went to podiatry today and was sent in due to
poor wound healing. Patient has been reportedly getting antibiotics at home which she completed without improvement. Wound has been worsening.
She had wound culture last week.
She reportedly had arterial ultrasound recently which was abnormal. Patient not diabetic.
Executive Administrative Asst is Dr. Dr. Sandy Lamb.
Drinks alcohol occasionally. Denies smoking..
Medical History
Past Medical History
Past Medical History: Reports Other (periprosthetic left femoral fracture, paroxysmal atrial fibrillation, dementia, anxiety/depression, hypertension, hyperlipidemia, hypothyroidism, GERD, history of right shoulder prosthetic joint infection status
post revision on chronic fluconazole, recurrent UTI)
Past Surgical History: Reports None
Social History
Tobacco: Non-smoker
Alcohol: None
Drug: None
Family History
Family History: Not pertinent
Allergies / Home Medications
Allergies reflects when Allergies were last updated in [facility].
Home Medications with original date entered in [facility] [facility]
Allergy/Medication List:
Allergies
Allergy/AdvReac Type Severity Reaction Status Date / Time
cephalexin (From Keflex) Allergy Unknown Verified 11/30/24 17:29
morphine Allergy Unknown Verified 11/30/24 17:29
sulfacetamide (From Allergy Rash Verified 11/30/24 17:29
Sulfacet-R)
sulfur (From Sulfacet-R) Allergy Rash Verified 11/30/24 17:29
Home Medications
nebivolol 10 mg tablet (Bystolic) 10 mg PO DAILY Blood pressure 02/02/22
atorvastatin 40 mg tablet 40 mg PO HS High cholesterol 02/03/22
levothyroxine 75 mcg tablet 75 mcg PO DAILY Thyroid 02/03/22
fluconazole 200 mg tablet 200 mg PO DAILY Infection 10/15/22
methenamine hippurate 1 gram tablet 1 g PO BID Infection 10/15/22
omeprazole 40 mg capsule,delayed release 40 mg PO DAILY Gastrointestinal issue 10/15/22
escitalopram oxalate 10 mg tablet 10 mg PO HS Mental Health/Anxiety 01/02/23
ezetimibe 10 mg tablet 10 mg PO HS High Cholesterol 07/02/23
fluticasone propionate 50 mcg/actuation nasal spray,suspension 1 spray intranasal BID 07/02/23
acetaminophen 500 mg tablet (Tylenol Extra Strength) 1,000 mg PO TID PRN mild pain 11/30/24
ascorbic acid (vitamin C) 500 mg tablet 500 mg PO BID 11/30/24
aspirin 81 mg tablet,delayed release 81 mg PO DAILY 11/30/24
memantine 5 mg tablet 5 mg PO BID 11/30/24
polyethylene glycol 3350 17 gram oral powder packet (HealthyLax) 17 g PO DAILYPRN PRN constipation 11/30/24
quetiapine 25 mg tablet 25 mg PO BID 11/30/24
quetiapine 50 mg tablet 50 mg PO HS 11/30/24
Review of Systems
-
History Source: Patient
A 12 point ROS was completed and negative except as noted: Yes
Constitutional: Reports No Symptoms
EENT: Reports No Symptoms
Respiratory: Reports No Symptoms
Cardiac: Reports No Symptoms
Abdomen/GI: Reports No Symptoms
: Reports No Symptoms
Musculoskeletal: Reports No Symptoms
Skin: Reports See HPI
Neurological: Reports No Symptoms
Endocrine: Reports No Symptoms
Hematologic/Lymphatic: Reports No Symptoms
Psych: Reports No Symptoms
Physical Exam
Vital Signs
Vital Signs
Temp Pulse Resp BP Pulse Ox
97.8 F 83 14 149/57 97
11/30/24 17:30 11/30/24 18:17 11/30/24 17:45 11/30/24 17:30 11/30/24 17:45
Physical Exam
General: Well Developed, Well Nourished and No Apparent Distress
HEENT: NormoCephalic, Moist mucous membranes and Atraumatic
Respiratory: Clear
Cardiac: S1/S2 and Regular Rhythm; No Murmur or Rub
GI: Soft, Non Tender, Non Distended and Normal Bowel Sounds; No Organomegaly
Rectal: Deferred by Provider
Musculoskeletal: No Clubbing, No Cyanosis and No Edema
Skin: Other (right big toe erythema, wound and swelling ); No Rash
Neuro: Nonfocal/grossly intact
Laboratory Results
-
11/30/24 17:48
11/30/24 17:48
Laboratory Results
PT 14.0 Sec (11.4-14.6) 11/30/24 17:48
INR 1.05 11/30/24 17:48
Total Bilirubin 0.4 mg/dl (0.2-1.3) 11/30/24 17:48
AST 22 U/L (14-36) 11/30/24 17:48
ALT 19 U/L (0-35) 11/30/24 17:48
Alkaline Phosphatase 93 U/L (38-126) 11/30/24 17:48
Data Reviewed
-
Lab Data: Labs Reviewed by me
Old Records: Reviewed
Impression/Plan
-
IMPRESSION:
PLAN:
# Right first toe ulcer/cellulitis suspicious for underlying osteomyelitis with possible PAD
- X-ray pending
- Vancomycin/Zosyn
- Likely will need MRI
- Family to bring in arterial ultrasound report which was reportedly abnormal
-Podiatry consult
- Vascular surgery consult
History of periprosthetic left femoral fracture
Paroxysmal atrial fibrillation status post Watchman
- Not on anticoagulation
Dementia
- Continue donepezil
Anxiety/depression
- Continue Seroquel, Lexapro
Essential hypertension
- Continue amlodipine, Nebivolol
Hyperlipidemia
- Continue Zetia
Hypothyroidism
- Continue levothyroxine
GERD
- Continue omeprazole
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
- On chronic fluconazole
History of recurrent UTI
Full code
DVT prophylaxis�heparin
Regular diet
[2024-11-30] MEDS: VANCOCIN 540 MG IV (20:29)
[2024-11-30 21:48] VITALS: BP 158/65; BMI 34.6
--- NOTE | 2024-11-30 21:48 | PTCARENOTE ---
Pt arrived onto floor @2148. Pt AAOx1 and a veneer puller to the bed. Pt with no complaints of pain or SOB at this time. Pt oriented to room and call [place]; will continue to monitor
[2024-11-30 21:49] VITALS: BMI 34.6
--- NOTE | 2024-11-30 22:01 | PHA.VAN.IN ---
Assessment
- Assessment
Renal Function: SCR Appears Elevated from baseline (11/16/24 SCR = 0.9)
Concomitant Antimicrobials: ZOSYN
- Previous Dosing Experience
Previous Regimen: 1250MG IV Q24H
Date of Regimen: 01/03/23
Provided Trough of: 13.5 PREDICTED
Provided AUC of: 556 PREDICTED
Patient's SCR is: Elevated compared to previous dosing experience (01/03/23 SCR = 1.0)
Patient's weight is: Elevated compared to previous dosing experience (01/03/23 WT = 75.9 KG)
AUC Dosing Plan
- Dosing Variables
Dosing Weight (kg): 85.8
Dosing CrCl (ml/min): 39
Vd coefficient (L/kg): 0.7
- Empiric Dosing
Initial / Loading Dose: 2GM
Maintenance Regimen: 1GM IV Q24H
Estimated AUC (mcg*h/mL): 461
Estimated Peak (mcg*h/mL): 28.4
Estimated Trough (mcg/ml): 12.2
Estimated Half Life (H): 18.8
Pharmacokinetics Vancomycin I
- -
Patient Age: 84
Patient Sex: Female
Vancomycin Day #: 1
Indication: Bone And Joint (OM)
Requesting Provider: CLAUDE
Pertinent Antimicrobial Allergies:
Allergies
cephalexin (From Keflex) Allergy (Verified 11/30/24 17:29)
Unknown
sulfacetamide (From Sulfacet-R) Allergy (Verified 11/30/24 17:29)
Rash
sulfur (From Sulfacet-R) Allergy (Verified 11/30/24 17:29)
Rash
Height / Weight:
Height 5 ft 2 in
Actual Weight 85.757 kg
- Vital Signs / Lab Results
Temp Pulse Resp BP Pulse Ox
97.4 F 60 18 158/65 99
11/30/24 21:48 11/30/24 21:48 11/30/24 21:48 11/30/24 21:48 11/30/24 21:48
Lab Results - Hematology
11/30/24
17:48
WBC 9.3
Lab Results - Chemistry
11/30/24
17:48
BUN 40 H
Creatinine 1.1 H
Estimated Creat Clear 40
Albumin 3.9
[2024-11-30] MEDS: ZETIA 10 MG PO (22:34)
[2024-11-30] MEDS: LIPITOR 40 MG PO (22:34)
[2024-11-30] MEDS: LEXAPRO 10 MG PO (22:34)
[2024-11-30] MEDS: HEPARIN 5000 UNITS SC (22:34)
[2024-11-30] MEDS: SEROQUEL 50 MG PO (22:34)
[2024-11-30 23:04] VITALS: BP 158/74
[2024-12-01] MEDS: ZOSYN 50 IV ×5 (00:04→23:00)
[2024-12-01 03:55] VITALS: BP 121/64
--- NOTE | 2024-12-01 04:19 | DOWNTIME ---
Addendum entered by Funmilayo Mcclain RN 12/01/24 14:16:
Downtime was 12/01/2024 from 0100 to 12/01/2024 at 0415
Original Note:
There was a [employer] Client Epic Director Downtime on 11/30/2024 from 0100 to 12/01/2024 at 0415. Downtime documentation of patient's care, including medication administrations, has been reconciled in the electronic record per guidelines. Refer to the
patient's paper chart under the miscellaneous tab to see printed paper medication records and downtime forms.
[2024-12-01] MEDS: SYNTHROID 75 MCG PO (05:01)
[2024-12-01] MEDS: VANCOCIN 200 IV (05:50)
[2024-12-01 07:19] VITALS: BP 129/78
[2024-12-01 07:39] LABS: % Basophils 0.3 % (0-2); % Eosinophils 3.5 % (0-6); % Immature Granulocytes 0.3 % (0-0.5); % Lymphocytes 26.4 % (20.5-51.1); % Monocytes 7.1 % (1.7-9.3); % Neutrophils 62.4 % (42.2-75.2); Absolute Eosinophils 0.3 10^3/uL (0-0.7); Absolute Lymphocytes 1.9 10^3/uL (1.2-3.4); Absolute Monocytes 0.5 10^3/uL (0.1-0.6); Absolute Neutrophils 4.5 10^3/uL (1.4-6.5); Hematocrit 35.4 % (37.0-47.0); Hemoglobin 12.4 g/dL (12.0-16.0); Mean Corpuscular Hgb 30.3 pg (27.0-31.0); Mean Corpuscular Volume 86.6 fL (81.0-99.0); Mean Platelet Volume 10.7 fL (7.4-10.4); Nucleated Red Blood Cells % 0 %; Platelet Count 174 10^3/uL (130-400); Red Blood Cell Count 4.09 10^6/uL (4.20-5.40); Red Cell Dist. Width 14.6 % (11.5-14.5); White Blood Cell Count 7.2 10^3/uL (4.8-10.8)
--- NOTE | 2024-12-01 07:56 | W.CS.POD ---
Consult Summary - Podiatry
-
Pt seen for ulcer of right great toe with cellulitis. She relates having the wound for a long time and denies any pain. She was seen by her DPM yesterday who sent her to the ED for nonhealing wound and failed course of abx after inc in swelling
and redness in the toe
x-ray shows osteo of medial proximal phalanx
nonpalpable pedal pulses with erythema of forefoot
ulceration of distal aspect of toe has eschar with no drainage or purulence
will wait for vascular consult before any surgical intervention if necessary
recommend MRI to confirm osteo
recommend wound care consult
will follow
consult to be dictated
--- NOTE | 2024-12-01 08:08 | CON.VAS ---
Addendum entered and electronically signed by Oscar Coates MD 12/01/24 12:25:
Reviewed noninvasive lower extremity arterial imaging studies completed at [facility] on 11/18/2024 (reviewed report). Right ankle-brachial index within normal limits, right toe brachial index within normal limits. Consistent with exam, this
suggests adequate perfusion for wound healing. Therefore will defer to podiatry for need for further debridement/amputation of the toe. Should have adequate perfusion for wound healing. Please call with any questions or if nonhealing toe
amputation site.
Addendum entered and electronically signed by Oscar Coates MD 12/01/24 11:02:
Seen and examined with RADHA Higuera. Agree with findings as noted below. Risk factors as noted below. Right first toe dry gangrene type appearance. Patient with baseline dementia. Unclear how long this lesion has been present. Denies any prior
vascular intervention.
On exam/she is awake and alert. Communicative but slightly difficult to comprehend her fluency of speech (meaning her words are fluid, but she has difficulty expressing fully her thoughts). Abdomen is soft, nondistended, nontender. Groins are
flat with palpable femoral pulses bilaterally. On the right side I think she has a 1+/2+ PT pulse palpable. Difficult to say because she keeps moving her foot. Left side difficult palpating. Right sided first digit as pictured below. Likely
dry gangrene.
Plan/likely distal tip right first toe dry gangrene. Based on pulse exam if she does indeed have a reasonable palpable PT pulse, likely sufficient perfusion for healing. However would obtain noninvasive lower extremity imaging with MILDRED/TBI's. If
suggest arterial insufficiency then will recommend angiography and we will plan accordingly. Otherwise would defer to podiatry regarding need for toe amputation.
Original Note:
Consultation
Consultation Request
Date/Time Consultation Performed: 12/01/24 4582
Requesting Provider: Hospitalist
Performing Provider: Sarai Higuera, RADHA-C for Oscar Coates M.D.
Reason for Consultation: Right hallux wound
Medical History
-
Chief Complaint: Right hallux wound
History of Present Illness:
This is an 84-year-old female with significant past medical history for periprosthetic left femoral fracture, paroxysmal atrial fibrillation status post watchman, dementia, anxiety/depression, hypertension, hyperlipidemia, hypothyroidism, GERD, and
recurrent UTI who presented to [facility] on 11/30/2024 with reports of worsening right hallux wound. Patient is pleasant and can answer some questions but remains a poor historian and unclear of complete sequela of events that led her to ED
other than wound, as HPI is also contributed by chart review. Per ED documentation patient was seen by podiatry who recommended ED evaluation due to poor wound healing. Patient endorses that wound has been present for roughly a month but she is
not sure. Denies tobacco use or seeing prior vascular surgeon/requiring vascular intervention. Denies claudication or rest pain but does endorse that she ambulates minimally due to contracture of left foot. Currently offers no complaints and
reports she is comfortable.
Right hallux
Past Medical History
Past Medical History: Other (periprosthetic left femoral fracture, paroxysmal atrial fibrillation, dementia, anxiety/depression, hypertension, hyperlipidemia, hypothyroidism, GERD, history of right shoulder prosthetic joint infection status post
revision on chronic fluconazole, recurrent UTI)
Past Surgical History: Other (Denies past surgical intervention however noted scar at left ankle)
Social History
Tobacco: Non-Smoker
Allergies / Home Medications
Allergy/AdvReac Type Severity Reaction Status Date / Time
cephalexin (From Keflex) Allergy Unknown Verified 11/30/24 17:29
morphine Allergy Unknown Verified 11/30/24 17:29
sulfacetamide (From Allergy Rash Verified 11/30/24 17:29
Sulfacet-R)
sulfur (From Sulfacet-R) Allergy Rash Verified 11/30/24 17:29
�Medication �Instructions �Recorded �Confirmed �Type
nebivolol 10 mg tablet (Bystolic) 10 mg PO DAILY Blood pressure 02/02/22 11/30/24 History
atorvastatin 40 mg tablet 40 mg PO HS High cholesterol 02/03/22 11/30/24 History
levothyroxine 75 mcg tablet 75 mcg PO DAILY Thyroid 02/03/22 11/30/24 History
fluconazole 200 mg tablet 200 mg PO DAILY Infection 10/15/22 11/30/24 History
methenamine hippurate 1 gram tablet 1 g PO BID Infection 10/15/22 11/30/24 History
omeprazole 40 mg capsule,delayed 40 mg PO DAILY Gastrointestinal 10/15/22 11/30/24 History
release issue
escitalopram oxalate 10 mg tablet 10 mg PO HS Mental Health/Anxiety 01/02/23 11/30/24 History
ezetimibe 10 mg tablet 10 mg PO HS High Cholesterol 07/02/23 11/30/24 History
fluticasone propionate 50 1 spray intranasal BID 07/02/23 11/30/24 History
mcg/actuation nasal
spray,suspension
acetaminophen 500 mg tablet 1,000 mg PO TID PRN mild pain 11/30/24 11/30/24 History
(Tylenol Extra Strength)
ascorbic acid (vitamin C) 500 mg 500 mg PO BID 11/30/24 11/30/24 History
tablet
aspirin 81 mg tablet,delayed 81 mg PO DAILY 11/30/24 11/30/24 History
release
memantine 5 mg tablet 5 mg PO BID 11/30/24 11/30/24 History
polyethylene glycol 3350 17 gram 17 g PO DAILYPRN PRN constipation 11/30/24 11/30/24 History
oral powder packet (HealthyLax)
quetiapine 25 mg tablet 25 mg PO BID 11/30/24 11/30/24 History
quetiapine 50 mg tablet 50 mg PO HS 11/30/24 11/30/24 History
Review of Systems
-
History Source: Patient
Constitutional: Reports No Symptoms
EENT: Reports No Symptoms
Respiratory: Reports No Symptoms
Cardiac: Reports No Symptoms
Vascular: Denies Leg Pain / Claudication
Abdomen/GI: Reports No Symptoms
: Reports No Symptoms
Musculoskeletal: Reports No Symptoms
Skin: Reports Other (Right hallux wound with eschar and erythema, see HPI for picture)
Physical Exam
Vital Signs
Temp Pulse Resp BP Pulse Ox
97.5 F 55 18 121/64 97
12/01/24 03:55 12/01/24 03:55 12/01/24 03:55 12/01/24 03:55 12/01/24 03:55
Lab Results
12/01/24 07:23
Physical Exam
General: No Apparent Distress and Comfortable
HEENT: Normocephalic, Anicteric and Atraumatic
Respiratory: Non Labored Respirations
Cardiac: Negative JVD
GI: Soft, Non Tender and Non Distended
Musculoskeletal: Edema (Trace edema bilateral lower extremities)
Skin: Other (Right hallux wound with eschar and erythema, no drainage)
Neuro: Awake, Alert and Other (Oriented to self and place)
Psych: Calm
Pulses: Bilateral Femoral: +1 (Unable to palpate distal pulses at bilateral lower extremities)
Assessment / Plan
-
Assessment: 84-year-old female with nonhealing right hallux wound, suspect degree of peripheral arterial disease attributing to nonhealing status given inability to palpate lower extremities on physical exam
Plan:
Initiate workup with arterial ultrasound with MILDRED/TBI, vascular surgical recommendations following results of noninvasive imaging.
Agree with initiation of antibiotics
I performed this shared service with the attending. I evaluated the patient [id number] and have entered clinical documentation as shown in the encounter note. I performed the following component(s):�history and physical exam. Note that medical
decision making is not final until attested by vascular attending.
[2024-12-01 08:18] LABS: ALT (SGPT) 17 U/L (0-35); AST (SGOT) 24 U/L (14-36); Albumin 3.7 g/dl (3.5-5.0); Alkaline Phosphatase 75 U/L (38-126); Blood Urea Nitrogen 35 mg/dl (7-17); Calcium 9.2 mg/dl (8.4-10.2); Carbon Dioxide 25 mmol/L (22-30); Chloride 109 mmol/L (98-107); Estimated Creatinine Clearance 43 ml/min; Glucose 110 mg/dl (70-99); Potassium 4.2 mmol/L (3.5-5.1); Sodium 140 mmol/L (135-145); Total Bilirubin 0.7 mg/dl (0.2-1.3); Total Protein 6.5 g/dl (6.3-8.2); eGFR 55.55
--- NOTE | 2024-12-01 08:32 | PHA.VAN.FU ---
Vancomycin Assessment / Plan
- Assessment
Renal Function: Stable
WBC's are: Stable
In the past 24 hrs, patient has been: Afebrile
Concomitant Antimicrobials: Zosyn, fluconazole
- Dosing Plan
Continue: Vancomycin 1000mg IV Q24H
- Monitoring Plan
No level(s) ordered at this time: Consider level when at steady state with current regimen
- Follow Up
Pharmacy will continue to follow.
Vancomycin Follow UP
- -
Patient Age: 84
Patient Sex: Female
Vancomycin Day #: 2
Indication: Bone And Joint (OM)
Requesting Provider: CLAUDE
Pertinent Antimicrobial Allergies:
Allergies
cephalexin (From Keflex) Allergy (Verified 11/30/24 17:29)
Unknown
sulfacetamide (From Sulfacet-R) Allergy (Verified 11/30/24 17:29)
Rash
sulfur (From Sulfacet-R) Allergy (Verified 11/30/24 17:29)
Rash
Height / Weight:
Height 5 ft 2 in
Actual Weight 85.757 kg
Pertinent Past Medical History: BMI ~34, R shoulder PJI (chronic fluconazole suppression)
- Vital Signs / Lab Results
Temp Pulse Resp BP Pulse Ox
97.7 F 57 18 129/78 99
12/01/24 07:19 12/01/24 07:19 12/01/24 07:19 12/01/24 07:19 12/01/24 07:19
Lab Results - Hematology
11/30/24 12/01/24
17:48 07:23
WBC 9.3 7.2
Lab Results - Chemistry
11/30/24 12/01/24
17:48 07:23
BUN 40 H 35 H
Creatinine 1.1 H 1.0
Estimated Creat Clear 40 43
Albumin 3.9 3.7
--- NOTE | 2024-12-01 10:10 | PTCARENOTE ---
Patient woken up by nursing for am shift assessment, 1000 scheduled Zosyn administration, incontinence/jackelyn-care and to set-up breakfast tray. Patient noted with +2-3 right arm edema, warmth and redness, as well as red rash to chest, back and
scattered on all extremities. Patient unable to offer reliable complaints or consistently answer assessment questions due to pre-existing confusion. Patient noted with recent 0600 administration of IV Vancomycin. Will notify VAT RN and attending
hospitalist Dr. Valdivia to assess for skin/soft tissue alteration and medication adverse reaction of suspected Vanco infiltration/extravasation and suspected Red Man Syndrome.
[2024-12-01] MEDS: BYSTOLIC 10 MG PO (10:42)
[2024-12-01] MEDS: VITAMIN C 500 MG PO ×2 (10:42→20:04)
[2024-12-01] MEDS: PROTONIX 40 MG PO (10:42)
--- NOTE | 2024-12-01 10:42 | VATNOTE ---
R lower arm infiltrate noticed by pt's primary RN. Pt had received Vanco this AM through the IV. This VAT RN went to assess pt and R arm IV was infiltrated. IV removed and hylenex was requested by this RN to the hospitalist. Site measures 13 cm in
length and 10 cm in width. Will continue to monitor.
[2024-12-01] MEDS: SEROQUEL 25 MG PO ×2 (10:43→18:26)
[2024-12-01] MEDS: ASPIR LOW (ENTERIC COATED) 81 MG PO (10:43)
[2024-12-01] MEDS: HEPARIN 5000 UNITS SC ×2 (10:44→20:04)
[2024-12-01] MEDS: DIFLUCAN 200 MG PO (10:48)
[2024-12-01] MEDS: NAMENDA 5 MG PO ×2 (10:48→20:04)
[2024-12-01] MEDS: HYLENEX 150 UNITS SC ×2 (11:05→12:19)
--- NOTE | 2024-12-01 11:20 | VATNOTE ---
Hylenex administered per protocol. Will reassess in45 min to see if second dose is needed.
--- NOTE | 2024-12-01 13:55 | W.PN.HOSP.TC ---
Addendum entered and electronically signed by Chris Valdivia DO 12/02/24 12:51:
There is no osteomyelitis, imaging does not clinically correlate
Original Note:
Today's Communication/Plan
-
Assessment / Plan
Assessment / Plan
General: No Apparent Distress, Comfortable and Conversant
HEENT: NormoCephalic, Moist mucous membranes, Atraumatic
Respiratory: Clear and Non Labored Respirations
Cardiac: S1/S2 and Regular Rhythm; No Rub or Gallop
GI: Soft, Non Tender, Non Distended and Normal Bowel Sounds
Musculoskeletal: Right forearm edema, no deformity
Skin: Warm and dry, scattered distinct maculopapular rashes throughout trunk, right distal hallux wound with eschar
: NO Miller
Neuro: Awake, Alert, Nonfocal/grossly intact
Psych: Calm and Intact Judgment/Insight
Ms. 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
presented with nonhealing distal right hallux wound. She was sent by her outpatient turntable operator due to poor wound healing after outpatient antibiotics and wound care.
Right distal hallux wound:
- Nonhealing after outpatient antibiotics and wound care
- Evaluated by vascular surgery who feel her distal foot is adequately perfused, no vascular intervention indicated
- X-ray shows probable tiny focus of osteomyelitis of the proximal phalanx of the right hallux
- Continue antibiotics with vancomycin and Zosyn, administer vancomycin slowly, watch for adverse medication reactions, Benadryl as needed
- Further recommendations per podiatry regarding potential surgical intervention
History of right shoulder prosthetic joint infection:
- Status post revision
- On chronic fluconazole
Hypertension:
- Currently well-controlled
- Continue home Nebivolol
Dementia:
- Continue memantine, escitalopram, and quetiapine
DVT prophylaxis: Subcu heparin
CODE STATUS: Full code
Total time spent on today's encounter was 40 minutes
Anticipated Discharge: > 48 hours
Subjective/Interval History
-
Date of Service: December 01, 2024
Patient was seen and examined at bedside this morning. She has no complaints. However she did have an apparent adverse reaction to her vancomycin earlier in the morning with rashes appearing on her trunk after completing the dose. She also had
extravasation of the vancomycin into her right forearm and IV line has since been removed and replaced.
Objective Data
-
Labs:
Laboratory Results
12/01/24
07:23
WBC 7.2
Hgb 12.4
Hct 35.4 L
Plt Count 174
Sodium 140
Potassium 4.2
Chloride 109 H
Carbon Dioxide 25
BUN 35 H
Creatinine 1.0
Glucose 110 H
Calcium 9.2
Total Bilirubin 0.7
AST 24
ALT 17
Alkaline Phosphatase 75
Vital Signs:
Vital Signs
Temp Pulse Resp BP Pulse Ox
97.7 F 57 18 129/78 99
12/01/24 07:19 12/01/24 07:19 12/01/24 07:19 12/01/24 07:19 12/01/24 07:19
I&O
11/30/24 12/01/24 12/02/24
06:59 06:59 06:59
Intake Total 240 / 240
Balance 240 / 240
Review of Systems
-
History Source: Patient
All other systems: Reviewed and negative
Musculoskeletal: Reports Edema (Right forearm) and Other (Right distal hallux wound)
Physical Exam
-
General: No Apparent Distress
--- NOTE | 2024-12-01 14:00 | CM ---
CM reviewed chart, patient seen bedside with caregiver and daughter, initial assessment completed. Patient resides at [facility], has 06/01 care. Patient is current with [facility] for PT and speech. Caregiver reports patient can ambulate with walker
(short distances), has wheelchair. Patient has been to [facility], [facility], would not return to SNF. Patient PCP [facility] Marley, pharmacy [facility]. Caregiver provided CM with new insurance card- will submit to admissions. Patient plan
return to [facility] with [facility] and 06/01 caregiver. CM will continue to follow for all discharge planning needs.
Plan; return to [facility] with [facility] and 06/01 caregiver
[2024-12-01] MEDS: BENADRYL 25 MG IV (14:20)
[2024-12-01] MEDS: FLUSH (NSS) 1 FLUSH IV (14:21)
[2024-12-01 15:27] VITALS: BP 99/70
--- NOTE | 2024-12-01 17:07 | W.PN.UPDATE ---
Update Note
Progress Note Update
pt seen at bedside. Ischemic ulcer , stable
no acute soi
osteo at prox phal on xray per radiology, not near ulcer
probably not osteo
rec santyl, wound care consult
fu as outpt
full consult to be dictated
--- NOTE | 2024-12-01 17:50 | VATNOTE ---
Pt's R arm infiltrate reassessed before end of this VAT RN's shift. Infiltrate now measuring 21 cm in length, width still 10 cm. Area is arm to the touch. Will continue to monitor.
--- NOTE | 2024-12-01 17:57 | VATNOTE ---
Late note from 1230: After reassessment of pt's infiltrate after first administration of hylenex, second dose administered. Infiltrate margins more defined and area is larger than initially assessed for. Will continue to monitor.
[2024-12-01] MEDS: LIPITOR 40 MG PO (20:03)
[2024-12-01] MEDS: SEROQUEL 50 MG PO (20:03)
[2024-12-01] MEDS: ZETIA 10 MG PO (20:03)
[2024-12-01] MEDS: LEXAPRO 10 MG PO (20:03)
[2024-12-01 23:19] VITALS: BP 132/52
[2024-12-02] MEDS: ZOSYN 50 IV (03:50)
[2024-12-02] MEDS: VANCOCIN 200 IV (05:18)
[2024-12-02] MEDS: SYNTHROID 75 MCG PO (05:18)
--- NOTE | 2024-12-02 07:05 | TRANSFER ---
PCN called to reassess L arm for possible Vanco infiltrate. Upon assessment Lforearm is infiltratred measured 11'x4. VAT requested PCN elevate and heat and need to call for Hylenex. am VAT espinosa aware for follow up
[2024-12-02 07:35] VITALS: BP 106/74
[2024-12-02] MEDS: HYLENEX 150 UNITS SC (07:45)
--- NOTE | 2024-12-02 07:52 | PHA.VAN.FU ---
Vancomycin Assessment / Plan
- Assessment
Renal Function: No New Labs Today
In the past 24 hrs, patient has been: Afebrile
Concomitant Antimicrobials: Zosyn, fluconazole
- Dosing Plan
Continue: Vancomycin 1000mg IV Q24H
- Monitoring Plan
Peak Level: 12/03/24 @0900
Trough Level: 12/04/24 @0530
- Follow Up
Pharmacy will continue to follow.
Vancomycin Follow UP
- -
Patient Age: 84
Patient Sex: Female
Vancomycin Day #: 3
Indication: [facility] ([facility])
Requesting Provider: CLAUDE
Pertinent Antimicrobial Allergies:
Allergies
cephalexin (From Keflex) Allergy (Verified 11/30/24 17:29)
Unknown
sulfacetamide (From Sulfacet-R) Allergy (Verified 11/30/24 17:29)
Rash
sulfur (From Sulfacet-R) Allergy (Verified 11/30/24 17:29)
Rash
Height / Weight:
Height 5 ft 2 in
Actual Weight 85.757 kg
Pertinent Past Medical History: BMI ~34, R shoulder PJI (chronic fluconazole suppression)
- Vital Signs / Lab Results
Temp Pulse Resp BP Pulse Ox
97.8 F 63 18 132/52 95
12/01/24 23:19 12/01/24 23:19 12/01/24 23:19 12/01/24 23:19 12/01/24 23:19
Lab Results - Hematology
11/30/24 12/01/24
17:48 07:23
WBC 9.3 7.2
Lab Results - Chemistry
11/30/24 12/01/24
17:48 07:23
BUN 40 H 35 H
Creatinine 1.1 H 1.0
Estimated Creat Clear 40 43
Albumin 3.9 3.7
--- NOTE | 2024-12-02 08:03 | VATNOTE ---
vat rounds:hyaluronidase given for left arm vanco infiltrate. warm compress applied. right arm infiltrate continues to be red. Swelling has gone down. Warm compress applied. Will continue to monitor closely.
--- NOTE | 2024-12-02 08:21 | W.PN.UPDATE ---
Update Note
Progress Note Update
d/w hospitalist last night
no surgery needed
will sign off
[2024-12-02] MEDS: SEROQUEL 25 MG PO (08:37)
[2024-12-02] MEDS: PROTONIX 40 MG PO (08:37)
[2024-12-02] MEDS: ASPIR LOW (ENTERIC COATED) 81 MG PO (08:37)
[2024-12-02] MEDS: BYSTOLIC 10 MG PO (08:37)
[2024-12-02] MEDS: VITAMIN C 500 MG PO (08:38)
[2024-12-02] MEDS: HEPARIN 5000 UNITS SC (08:38)
[2024-12-02] MEDS: NAMENDA 5 MG PO (08:38)
[2024-12-02] MEDS: DIFLUCAN 200 MG PO (08:38)
--- NOTE | 2024-12-02 08:50 | PN.CDI ---
CDI
- -
CDI:
Physician Documentation Request
Admit Date: 11/30/24 20:11
Dear Doctor Shea,
ER Physician Documentation: 'worsening wound to the right first toe. Patient went to podiatry today, was sent in due to poor wound healing.'
11/30 Foot XRay: 'Findings suggesting probable tiny focus of osteomyelitis of the proximal phalanx of the right great toe. Clinical correlation recommended.'
12/01 Hospitalist PN: 'X-ray shows probable tiny focus of osteomyelitis of the proximal phalanx of the right hallux'
Clarify which of the following accurately represents the acuity of the osteomyelitis. Possible options might include:
____ Acute
Acute on Chronic
Chronic stable condition
____ Other
Use of terms such as suspected, likely, concern for, or probable (associated with a specific diagnosis that is being evaluated, monitored, or treated as if it exists) are acceptable and can be coded in the inpatient setting, when documented at the
time of discharge.
Thank you,
Carol Aldrich RN, BSN
CDI Specialist
Available via [facility] text
Please use your independent medical judgment in providing your response.
--- NOTE | 2024-12-02 11:14 | CM ---
Addendum entered by Bambi Marie 12/02/24 14:07:
Patient seen bedside with caregiver, discussed patient scheduled for 3:30 p.m. transport. Referral placed to [facility] for wound care needs.
[facility]
Addendum entered by Bambi Marie 12/02/24 12:25:
Patient for discharge today, call to patients daughter, Vidhi, to discuss discharge planning. Patient will require ambulance transport home. IMM verbally reviewed, placed in chart. CM will continue to follow for all discharge planning needs.
Original Note:
CM reviewed chart, patient seen bedside. Per chart, no plans for surgery. Patient plan remains return to [place] with [facility] therapy and 24/7 care. CM will continue to follow for all discharge planning needs.
Plan; return to [place] with [facility] therapy and 24/7 care
--- NOTE | 2024-12-02 11:25 | WOUNDNOTE ---
[facility] RN note: Patient admitted with right great toe infection
See H&P for complete history.
PMH: Left femoral fracture, A-fib with watchman, dementia, anxiety, depression, HTN, GERD, recurrent UTI's.
Wound Location and type/assessment: Patient admitted with right toe infection. Wound is now with stable eschar, no drainage or odor noted. Please see worklist for measurements. Per chart review patient has had recent arterial studies at [facility] (November 18, 2024). Per chart, patient has adequate perfusion for healing. Both vascular and Podiatry have been consulted this admission. Podiatry recommended patient follow up as outpatient. Staff have been appropriately applying Calazime to
areas of MASD on groin and between skin folds. Heels blanchable and silicone border foam maintained. Patient demonstrated poor mobility and poor cognition during assessment.
Appetite: Fair to poor, per caregiver
Pressure redistribution devices in place: Static air overlay added to bed. Heels off-loaded with pillows under calves. Incontinence care provided with assistance of RN and PCT. Patient positioned to left semi-side lying position.
Plan: Discussed plan with Dr. Valdivia at [facility]. Will recommend Betadine daily to wound. ANDER Christianson also updated. Will follow as needed. Updated care plan and will follow as needed.
Note to case management of equipment requested for discharge:
Recommend follow up at wound care center upon discharge.
--- NOTE | 2024-12-02 11:52 | WOUNDNOTE ---
RIGHT GREAT TOE
--- NOTE | 2024-12-02 11:52 | WOUNDNOTE ---
RIGHT GREAT TOE
--- NOTE | 2024-12-02 12:45 | W.DCSUMMARY ---
Discharge Summary
Discharge Data
Date of Admission: 11/30/24
Date of Discharge: 12/02/24
Total time spent discharging patient (in min): 42
-
Pending Results: No
Hospital Course
Ms. 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
presented with nonhealing distal right hallux wound. She was sent by her outpatient biological technician due to poor wound healing after outpatient antibiotics and wound care. Initially imaging showed possible tiny focus of osteomyelitis in the proximal
phalanx of the right hallux. However this is likely an artifact and does not clinically correlate with the location of her wound. She was evaluated by vascular surgery who determined that she has adequate blood flow to the area of concern and no
vascular interventions are indicated. She was further evaluated by podiatry who felt no surgical intervention was warranted. She will need ongoing wound care and treatment with oral antibiotics. At time of hospital discharge she was medically
stable.
General: No Apparent Distress, Comfortable and Conversant
HEENT: NormoCephalic, Moist mucous membranes, Atraumatic
Respiratory: Clear and Non Labored Respirations
Cardiac: S1/S2 and Regular Rhythm; No Rub or Gallop
GI: Soft, Non Tender, Non Distended and Normal Bowel Sounds
Musculoskeletal: Right forearm edema, no deformity
Skin: Warm and dry, right distal hallux wound with eschar
: NO Miller
Neuro: Awake, Alert, Nonfocal/grossly intact
Psych: Calm and cooperative
Discharge Plan
-
Patient Disposition: Home with Home Care
Discharge Diagnosis/Procedures: Nonhealing right distal hallux wound
Activity Restrictions/Additional Instructions:
Wound Care Instructions Right Great Toe- May gently clean with soap and water and pat dry. Apply Betadine daily
Follow up with your Automotive Diagnostic Technician
Static Air Overlay
Frequent incontinence care with use of barrier ointment
Turning schedule
Keep heels off-loaded with pillow or air cushion under calves
Ms. 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
presented with nonhealing distal right hallux wound. She was sent by her outpatient biological technician due to poor wound healing after outpatient antibiotics and wound care. Initially imaging showed possible tiny focus of osteomyelitis in the proximal
phalanx of the right hallux. However this is likely an artifact and does not clinically correlate with the location of her wound. She was evaluated by vascular surgery who determined that she has adequate blood flow to the area of concern and no
vascular interventions are indicated. She was further evaluated by podiatry who felt no surgical intervention was warranted. She will need ongoing wound care and treatment with oral antibiotics. At time of hospital discharge she was medically
stable.
Referrals:
[facility] Marley MD [Family Provider, Internal Medicine]
Prescriptions:
New
doxycycline hyclate 100 mg Capsule
100 mg PO Q12 5 Days Qty: 10 0RF
Continued
nebivolol [Bystolic] 10 mg Tablet
10 mg PO DAILY
atorvastatin 40 mg Tablet
40 mg PO HS
levothyroxine 75 mcg Tablet
75 mcg PO DAILY
fluconazole 200 mg tablet
200 mg PO DAILY
methenamine hippurate 1 gram tablet
1 g PO BID
Patient Comments:
11/30/2024, taken w/ her vitamin C.
omeprazole 40 mg Capsule,Delayed Release(Dr/Ec)
40 mg PO DAILY
escitalopram oxalate 10 mg Tablet
10 mg PO HS
fluticasone propionate 50 mcg/actuation [place],Suspension
1 spray INTRANASAL BID
ezetimibe 10 mg Tablet
10 mg PO HS
quetiapine 25 mg Tablet
25 mg PO BID
aspirin 81 mg Tablet,Delayed Release (Dr/Ec)
81 mg PO DAILY
ascorbic acid (vitamin C) 500 mg Tablet
500 mg PO BID
Patient Comments:
11/30/2024, taken w/ her methenamine hippurate.
memantine 5 mg Tablet
5 mg PO BID
quetiapine 50 mg Tablet
50 mg PO HS
Patient Comments:
11/30/2024, taken with 25 mg for a total of 75 mg.
polyethylene glycol 3350 [HealthyLax] 17 gram powder in packet
17 g PO DAILYPRN PRN (Reason: constipation)
acetaminophen [Tylenol Extra Strength] 500 mg tablet
1,000 mg PO TID PRN (Reason: mild pain)
Discharge Orders:
Discharge Patient (As Directed); Ordered 12/02/24
Ordered By: Chris Valdivia
Discharge Date and Time
Print Language: ALBANIAN
--- NOTE | 2024-12-02 14:25 | VATNOTE ---
Left forearm noted to appear less reddened at infiltrate site. Continues to appear edamatous. IV team to monitor.
[2024-12-02 15:32] VITALS: BP 149/68
== END 2024-12-02 15:57 | disposition home health service (06) | DRG 638 ==
LOC: 4 WEST ACU 20:11
PROVIDERS: ADMITTING PHYSICIAN Hospitalist; ATTENDING PHYSICIAN Internal Medicine; CONSULT PHYSICIAN Podiatrist; EMERGENCY PHYSICIAN Student in an Organized Health Care Education/Training Program; FAMILY PHYSICIAN Internal Medicine; OTHER PHYSICIAN Podiatrist Foot Surgery; OTHER PHYSICIAN Surgery Vascular Surgery
DX: E11.621 Type 2 diabetes mellitus with foot ulcer (principal); F03.93 Unspecified dementia, unspecified severity, with mood disturbance; F03.94 Unspecified dementia, unspecified severity, with anxiety; L97.519 Non-pressure chronic ulcer of other part of right foot with unspecified severity; I48.0 Paroxysmal atrial fibrillation; Z96.611 Presence of right artificial shoulder joint; Z95.818 Presence of other cardiac implants and grafts; E03.9 Hypothyroidism, unspecified; I10 Essential (primary) hypertension; Z79.890 Hormone replacement therapy; Z79.899 Other long term (current) drug therapy; K59.00 Constipation, unspecified; E78.00 Pure hypercholesterolemia, unspecified; F32.A Depression, unspecified; I73.9 Peripheral vascular disease, unspecified; K21.9 Gastro-esophageal reflux disease without esophagitis; L03.031 Cellulitis of right toe; M24.575 Contracture, left foot; Z79.82 Long term (current) use of aspirin; Z87.440 Personal history of urinary (tract) infections; Z88.1 Allergy status to other antibiotic agents; Z88.5 Allergy status to narcotic agent
CPT/HCPCS: 73630; 80053; 85025; 85610; 87070; 96374; 99284